=== PATIENT | female | born 1975 | race Caucasian/White ===

== ENCOUNTER 2019-12-02 00:28 | Outpatient (CLI) | payer BC, SELFPAY ==
[2019-12-02 17:34] LABS: SARS-CoV-2 RNA PCR Negative
== END 2019-12-02 00:29 | disposition home or self-care (01) ==
LOC: ANHCOVIDDT 00:29
PROVIDERS: PCP Family Medicine; Visit Provider Obstetrics & Gynecology
DX: Z01.818 Encounter for other preprocedural examination (principal); Z11.59 Encounter for screening for other viral diseases
CPT/HCPCS: 87635; C9803; U0003

== ENCOUNTER 2019-12-02 08:53 | Outpatient (CLI) | payer BC, SELFPAY ==
--- NOTE | 2019-12-02 08:58 | ECG_ITS ---
Measurements Intervals [place] Rate: 74 P: 56 ND: 164 QRS: 2 QRSD: 105 T: 27 QT: 384 QTc: 427 Interpretive Statements SINUS RHYTHM INCOMPLETE RIGHT BUNDLE BRANCH BLOCK BORDERLINE R WAVE PROGRESSION, ANTERIOR LEADS BASELINE ARTIFACT- I, III, AVR, AVL BORDERLINE ECG Electronically Signed On 12-02-2019 9:16:10 CDT by Miguel A Lozano D.O.
== END 2019-12-02 08:54 | disposition home or self-care (01) ==
LOC: ANHSURGERY 08:58
PROVIDERS: PCP Family Medicine; Visit Provider Obstetrics & Gynecology
DX: Z01.818 Encounter for other preprocedural examination (principal); N83.8 Other noninflammatory disorders of ovary, fallopian tube and broad ligament; Z72.0 Tobacco use
CPT/HCPCS: 36415; 86850; 86900; 86901; 93005

== ENCOUNTER 2019-12-04 01:37 | Day surgery (SDC) | payer BC, SELFPAY ==
[2019-12-01 09:38] VITALS: BMI 42.5
--- NOTE | 2019-12-02 07:42 | P.HP_ITS ---
H&P: HPI History of Present Illness Chief complaint: Left Ovarian Mass, Pain Narrative: Jesusita Mariscal is a 44 year old female status post hysterectomy as admitted for laparoscopic left salpingo- oophorectomy. She had pain discomfort dyspareunia. Ultrasound shows an absent uterus with an unremarkable vaginal cuff the right ovary was not seen with a large left adnexal mass this complex cystic in nature. Risks and benefits of this procedure reviewed including but not exclusive of , aspiration pneumon ia, bleeding, transfusion, perforation injury to bowel, bladder, ureters, or other internal organs with need for open laparotomy. She voiced good understanding. She received the [facility] [place]oscopy. She had all questions answered and asked to proceed Review of Systems Review of Systems: All systems reviewed & are unremarkable except as noted in HPI and below PMFSH Family History Family History Father Family history of mental disorder Family history of coronary artery disease Grandparent Cerebrovascular accident Family history of lung cancer Diabetes mellitus Sibling Family history of malignant melanoma Other Hypertension Social History Social History Smoking status: Smoker, status unknown Alcohol intake: current Meds Home Medications and Allergies Home Medications Medication Instructions Recorded Confirmed Type alprazolam 0.5 mg tablet 0.5 mg PO TID PRN #90 tablet 11/16/19 12/01/19 Rx cetirizine [Zyrtec] 10 mg PO DAILY 12/01/19 12/01/19 History magnesium oxide,aspartate,citr 400 mg PO DAILY 12/01/19 12/01/19 History [Triple Magnesium Complex] Allergies Allergy/AdvReac Type Severity Reaction Status Date / Time Cephalosporins Allergy Unknown N/V Verified 12/01/19 09:39 metoprolol Allergy Unknown SOB, Verified 12/01/19 09:39 dizziness CEFUROXIME AXETIL AdvReac Intermediate N/V Uncoded 12/01/19 09:39 Exam Const: General: no acute distress Neck: Neck: supple and no JVD Thyroid: thyroid normal Resp: Effort & Inspection: normal respiratory effort Auscultation: clear to auscultation bilaterally Cardio: Rate: regular rate Rhythm: regular rhythm GI: Inspection: non-distended GI Palp: Yes Soft to palpation, No Tenderness to palpation present (GI) and No Guarding due to palpation present (GI) Auscultation: normal bowel sounds : General: Yes bladder normal to inspection External Female Exam: normal external appearance and normal appearance of the urethra Speculum Exam - Vagina: normal appearance of the vagina Speculum Exam - Cervix: Cervix absent Bimanual exam- vagina & uterus: uterus absent Bimanual Exam- Adnexa, other: Adnexal mass present on the left Skin: General skin exam: no rashes or lesions noted Extrem: General: normal to inspection and no edema Psych: Mental Status: mental status grossly normal Affect: normal affect Assessment and Plan Additional Plan impression: Complex left ovarian cyst Plan: Laparoscopic left salpingo-oophorectomy
[2019-12-04] VITALS (8 sets, daily range): BP systolic 148–179; BP diastolic 77–99; PULSE 74–105; RESP 14–18; TEMP 36.7; O2SAT 97–100
--- NOTE | 2019-12-04 06:45 | WPDHPUPDATE1 ---
History and Physical Update Update Date/Time: 12/04/19 06:45 History and Physical has been reviewed, including an updated exam of the patient. There are NO changes in the patient's condition. Risks, benefits, and alternatives have been discussed and questions answered. Patient agrees to proceed with procedure.
--- NOTE | 2019-12-04 07:55 | P.PNAN_ITS ---
Anes - Initial Pre Proc Eval Procedure: Operation Date: 12/04/19 13:30 Proposed Procedures p Laparoscopic Left Salpingo-Oopherectomy - Delroy Argueta MD Date/Time: 12/04/19 07:55 Surgeon: Delroy Argueta MD Pre Op Diagnosis: Left Ovarian Mass, Pain Patient Data Age: 44 Gender: F Height: 1.63 m Weight: 112.49 kg Allergies Allergy/AdvReac Type Severity Reaction Status Date / Time Cephalosporins Allergy Unknown N/V Verified 12/01/19 09:39 metoprolol Allergy Unknown SOB, Verified 12/01/19 09:39 dizziness CEFUROXIME AXETIL AdvReac Intermediate N/V Uncoded 12/01/19 09:39 Home Medications Medication Instructions Recorded Confirmed Type alprazolam 0.5 mg tablet 0.5 mg PO TID PRN #90 tablet 11/16/19 12/04/19 Rx cetirizine [Zyrtec] 10 mg PO DAILY 12/01/19 12/04/19 History magnesium oxide,aspartate,citr 400 mg PO DAILY 12/01/19 12/04/19 History [Triple Magnesium Complex] hydrocodone-acetaminophen [[place]] 1 tablet PO Q4H PRN #30 tablet 12/04/19 Rx Patient hx anesthesia problems: none Family hx anesthesia problems: none PMFSH Past Medical History Medical History (Updated 12/04/19 @ 07:56 by Colten Porras MD) Anxiety disorder, unspecified Essential (primary) hypertension Hyperlipidemia Morbid obesity with BMI of 40.0-44.9, adult Family History Family History Father Family history of mental disorder Family history of coronary artery disease Grandparent Cerebrovascular accident Family history of lung cancer Diabetes mellitus Sibling Family history of malignant melanoma Other Hypertension Social History Social History Smoking status: Smoker, status unknown Alcohol intake: current Anes - Eval Final PreProcedure Day of Procedure 12/04/19 07:55 Patient weight: morbidly obese Heart: regular rate and rhythm Lungs: clear to auscultation and normal air movement Airway: Mallampati scale class II Neurological: alert and oriented Last oral intake: >/= 8 hours ASA classification: III Emergent: no Anesthetic plan: proceed Anesthesia type and monitoring: general ETT Informed Consent: The patient's anesthetic plan and its attendant risks and benefits were discussed with the patient/family/POA. Questions were solicited and answers provided to the satisfaction of the patient/family/POA.
[2019-12-04] MEDS: LACTATED RINGERS 1,000 ML 30 ML IV CONT ×2 (12:23→17:26)
--- NOTE | 2019-12-04 13:14 | SUR.PREOP ---
1314- UPDATED PT AND (YOLY) ON DELAY IN DR. TROY TAYLOR ROOM. STATED SURGERY TIME MAY BE 4 PM.
--- NOTE | 2019-12-04 15:11 | SUR.PREOP ---
1511- UPDATED PT ON DELAY, EXPLAINED SHE WILL GO BACK B/W 1600- 1630. RN WILL CALL HIM WHEN PT GOES TO OR.
--- NOTE | 2019-12-04 17:15 | P.OP_ITS ---
Procedure Note - Detailed Date of procedure: 12/04/19 Pre-op diagnosis: Left Ovarian Mass, Pain Surgeon: Delroy Argueta MD Postop diagnosis left ovarian mass /pain /pelvic adhesions Procedure: Laparoscopic left oophorectomy /lysis of adhesions Anesthesia: General endotracheal EBL: 25cc Findings: Absent uterus adhesions from the omentum to the anterior abdominal wall. A large ovarian cyst that was simple in nature surrounded by pelvic adhesions. Complications: None Description of procedure. The patient was prepped and draped in normal sterile fashion and placed in the dorsal lithotomy position. Under excellent general endotracheal anesthesia weighted speculum was placed in posterior fornix of va sherri. The bladder emptied of clear urine. A sponge stick was placed in the vagina. The weighted speculum was removed. The gloves were changed. A supraumbilical incision was made the Veress needle passed in the abdomen the abdomen filled with CO2 gas to 15 of mercury. The 5mm trocar was advanced under direct visualization using the optic scope in no injury seen. The patient placed in Trendelenburg and a left lateral quadrant incision made the 10mm trocar advanced in the abdomen under direct visualization assuring no injury. The multiple adhesions were then brought down by using sharp dissection with Endo Aashish and occasional cautery. This helped clear the visualization to the left ovary. Enlarged left ovarian cyst was seen. This was encased in omentum and scar tissue. Using sharp dissection carefully avoiding the overlying bowel this was dissected free into the intended infundibulopelvic structure could be skeletonized. That was then clamped burned and cut. Irrigation was undertaken until clear and the pedicles appeared clear. An Endo-Catch was placed in the left lower quadrant and the specimen placed in the endobag. This was removed through the left lower quadrant. Irrigation undertaken until clear. Blood loss was estimated 25cc. The trocar sites removed after gas removed from the abdomen. The incisions were closed with 4 Monocryl and glue. The instruments vagina were removed. The patient was awakened. She went to recovery in satisfactory condition. All sponge, needle, instrument counts were correct. There were no immediate complications
== END 2019-12-04 19:31 | disposition home or self-care (01) ==
PROVIDERS: PCP Family Medicine; Visit Provider Obstetrics & Gynecology
PROC: (CPT 49320; principal; 2019-12-04 13:30)
DX: N83.292 Other ovarian cyst, left side (principal); N73.6 Female pelvic peritoneal adhesions (postinfective)
CPT/HCPCS: 58661; 88305; A9270; J0330; J1100; J1170; J1885; J2250; J2405; J2704; J3010; J7120

== ENCOUNTER 2020-02-23 14:01 | Outpatient (CLI) | payer BC, SELFPAY ==
--- NOTE | ~2020-02-23 | MM_ITS ---
EXAMINATION: MM screening roddy BI w karuna HISTORY: Screening mammogram TECHNIQUE: Craniocaudal and mediolateral oblique 3-D tomosynthesis images were obtained and synthetic 2-D images were generated. CAD analysis was submitted and interpreted. COMPARISON: 12/20/2015 complete left breast ultrasound 12/13/2015, 10/04/2014 bilateral digital screening mammogram examinations BREAST PARENCHYMAL COMPOSITION: There are scattered areas of fibroglandular density... FINDINGS: Occasional small low-density circumscribed opacities are again noted, as well as bilateral benign calcifications. There is no evidence of suspicious mass, calcification, or architectural disto rtion to suggest malignancy in either breast. There has been no suspicious interval change. IMPRESSION: 1. No mammographic evidence of malignancy. 2. Recommend routine screening mammography in one year. BI-RADS Category 2: Benign finding(s). Reviewed, dictated and finalized at location A.
== END 2020-02-23 14:02 | disposition home or self-care (01) ==
PROVIDERS: PCP Family Medicine; Visit Provider Obstetrics & Gynecology
DX: Z12.31 Encounter for screening mammogram for malignant neoplasm of breast (principal)
CPT/HCPCS: 77063; 77067

== ENCOUNTER → 2021-03-23 13:21 | Outpatient (CLI) | payer BC, SELFPAY ==
--- NOTE | ~2021-03-23 | XR_ITS ---
XR shoulder RT min 2V DATE: 03/23/2021 13:42 INDICATION: Right shoulder pain TECHNIQUE: 4 views COMPARISON: None FINDINGS: There is degenerative spurring of the right acromioclavicular joint. No fracture or dislocation, periosteal reaction or bone destruction or abnormal soft tissue calcifica tion of the right shoulder is detected. IMPRESSION: Degenerative spurring at the right acromioclavicular joint Reviewed, dictated and finalized at location B.
== END ==
PROVIDERS: PCP Family Medicine; Visit Provider Nurse Practitioner Family
DX: M25.519 Pain in unspecified shoulder (principal); R20.0 Anesthesia of skin; R20.2 Paresthesia of skin; M77.8 Other enthesopathies, not elsewhere classified
CPT/HCPCS: 73030

== ENCOUNTER 2021-04-06 16:59 | Outpatient (CLI) | payer BC, SELFPAY ==
--- NOTE | ~2021-04-06 | MR_ITS ---
EXAMINATION: MR shoulder RT wo con DATE: 04/06/2021 17:48 INDICATION: Stiffness of unspecified joint, not elsewhere classified. Right shoulder injury and pain. TECHNIQUE: Magnetic resonance imaging (MRI) of the right shoulder was performed without intravenous c ontrast. Sequences included axial PD-weighted FS FSE, coronal oblique PD-weighted FS FSE and T2-weigh lizy FS FSE, and sagittal oblique T2-weighted FS FSE and T1-weighted FSE. COMPARISON: Right shoulder radiographs 03/23/2021 FINDINGS: Coracoacromial arch: The acromion undersurface is curved in morphology (type II). There is inferolateral tilt of the acrom ion. There is severe acromioclavicular joint osteoarthritis. There is mild subacromial/subdeltoid bur sitis. Rotator cuff: There is mild supraspinatus and infraspinatus tendinopathy. Teres minor tendon is normal. There is mo derate subscapularis tendinopathy. No tear. There is no asymmetric fatty atrophy of the rotator cuff muscle bellies. Biceps tendon and glenoid labrum: Biceps tendon is in bicipital groove. There is mild intra-articular biceps tendinopathy. The glenoid labrum is normal. Fluid: There is a small glenohumeral joint effusion. Bones/cartilage: Humeral head cartilage is normal. Glenoid cartilage is normal. IMPRESSION: 1. Moderate rotator cuff tendinopathy. No tear. 2. Mild biceps tendinopathy. 3. Severe acromioclavicular joint osteoarthritis. 4. Mild subacromial/subdeltoid bursitis. 5. Small glenohumeral joint effusion. Reviewed, dictated and finalized at location A.
== END 2021-04-06 17:00 | disposition home or self-care (01) ==
LOC: ANHIMG 17:05
PROVIDERS: PCP Family Medicine; Visit Provider Nurse Practitioner Family
DX: M25.60 Stiffness of unspecified joint, not elsewhere classified (principal); M25.519 Pain in unspecified shoulder; R20.0 Anesthesia of skin; R20.2 Paresthesia of skin; R29.898 Other symptoms and signs involving the musculoskeletal system; M19.011 Primary osteoarthritis, right shoulder; M25.411 Effusion, right shoulder; S46.211A Strain of muscle, fascia and tendon of other parts of biceps, right arm, initial encounter
CPT/HCPCS: 73221

== ENCOUNTER 2021-07-31 10:19 | Emergency (ER) | payer BC, SELFPAY ==
--- NOTE | 2021-07-31 10:29 | ED.URI ---
HPI - URI/Sore Throat General Chief Complaint: Upper Respiratory Infection Stated Complaint: Congestion Time Seen by Provider: 07/31/21 10:29 Source: patient, RN notes reviewed and old records reviewed Mode of arrival: ambulatory Limitations: no limitations History of Present Illness HPI Narrative: 45-year-old female presents to the [facility] with complaints of bilateral ear pain, pressure, sinus pain and pressure for the last 5 days. Reports a history of bacterial sinus infections. States that she normally uses a Z-Francisco and that takes care of everything. States that she cannot take Augmentin due to GI upset. States that she cannot use Flonase. Has tried using Mucinex and Sudafed with no relief. States she tried getting in with her doctor for a shot of a steroid antibiotic mix and a Z-Francisco. Related Data Home Medications Medication Instructions Recorded Confirmed cetirizine [Zyrtec] 10 mg PO DAILY 12/01/19 07/31/21 Allergies Allergy/AdvReac Type Severity Reaction Status Date / Time fluticasone [From Flonase] Allergy Intermediate Itching Verified 07/31/21 10:42 Cephalosporins Allergy Unknown N/V Verified 07/31/21 10:42 metoprolol Allergy Unknown SOB, Verified 07/31/21 10:42 dizziness amoxicillin [From Augmentin] AdvReac Intermediate Diarrhea Verified 07/31/21 10:42 clavulanic acid AdvReac Intermediate Diarrhea Verified 07/31/21 10:42 [From Augmentin] CEFUROXIME AXETIL AdvReac Intermediate N/V Uncoded 03/23/21 08:12 Review of Systems Review of Systems: All systems reviewed & are unremarkable except as noted in HPI and below Constitutional: Constitutional: Reports no additional constitutional complaints, Denies chills, Denies fever(s) and Denies headache(s) Eyes: Eyes: Reports no additional eye complaints ENT: Reports as per HPI, Denies vertigo, Denies dizziness, Denies headache(s), Reports nasal congestion and Denies sore throat Comments: Bilateral ear pain Cardiovascular: Cardiovascular: Reports no additional cardiovascular complaints, Denies chest pain, Denies syncope, Denies rapid heart rate and Denies dyspnea Respiratory: Respiratory: Reports no additional respiratory complaints, Denies cough, Denies dyspnea and Denies wheezing Gastrointestinal: Gastrointestinal: Reports no additional gastrointestinal complaints, Denies abdominal pain, Denies diarrhea, Denies nausea and Denies vomiting Musculoskeletal: Musculoskeletal: Reports no additional musculoskeletal complaints and Denies numbness Integumentary/Breasts: Skin/Breast: Reports system reviewed and no additional complaints, except as docu Neurologic: Reports system reviewed and no additional complaints, except as documented, Denies vertigo, Denies dizziness, Denies syncope, Denies headache(s), Denies focal weakness and Denies numbness Psychiatric: Psychiatric: Reports no additional psychiatric complaints Allergic/Immunologic: Allergic/Immunologic: Reports no additional allergic/immunologic complaints and Denies wheezing PMFSH Past Medical History Medical History Anxiety disorder, unspecified Boil, groin Essential (primary) hypertension Eustachian tube disorder Hyperlipidemia Morbid obesity with BMI of 40.0-44.9, adult Surgical History Surgical History History of oophorectomy, unilateral Hx of hysterectomy Family History Family History Father Family history of mental disorder Family history of coronary artery disease Grandparent Cerebrovascular accident Family history of lung cancer Diabetes mellitus Sibling Family history of malignant melanoma Other Hypertension Social History Social History Years smoked: 35 Smoking status: Former smoker Tobacco type: cigarettes Alcohol intake: current Substance use: never
[2021-07-31 10:35] VITALS: BP 157/82; PULSE 97; RESP 18; TEMP 37.5; O2SAT 100
== END 2021-07-31 10:45 | disposition home or self-care (01) ==
PROVIDERS: Emergency Provider Nurse Practitioner; PCP Family Medicine
DX: H65.01 Acute serous otitis media, right ear (principal); J32.9 Chronic sinusitis, unspecified; Z87.891 Personal history of nicotine dependence; I10 Essential (primary) hypertension; E78.5 Hyperlipidemia, unspecified; E66.01 Morbid (severe) obesity due to excess calories; Z68.39 Body mass index [BMI] 39.0-39.9, adult
CPT/HCPCS: 99213; G0463

== ENCOUNTER → 2021-09-05 11:22 | Outpatient (CLI) | payer BC, SELFPAY ==
--- NOTE | ~2021-09-05 | XR_ITS ---
EXAMINATION: XR chest 2V EXAM DATE: 09/05/2021 11:33 INDICATION: R05.3 - Chronic cough. Shortness of breath, ear pain, head pressure. TECHNIQUE: Frontal and lateral projections of the chest obtained and reviewed. There is no prior tiara dy for comparison. FINDINGS: The lungs are clear. There are no pleural effusions. The cardiomediastinal silhouette is within normal limits. There is no pneumothorax suspected. The bones and soft tissues are unremarkab le. IMPRESSION: No acute cardiopulmonary findings. Reviewed, dictated and finalized at location B.
== END ==
PROVIDERS: PCP Family Medicine; Visit Provider Nurse Practitioner Family
DX: R05.3 Chronic cough (principal); R07.89 Other chest pain
CPT/HCPCS: 71046

== ENCOUNTER 2022-06-21 17:25 | Emergency (ER) | payer BC, SELFPAY ==
[2022-06-21 17:45] VITALS: BP 168/95; PULSE 86; RESP 16; TEMP 37.2; O2SAT 100
--- NOTE | 2022-06-21 18:02 | ED.URI ---
HPI - URI/Sore Throat General Chief Complaint: Upper Respiratory Infection Stated Complaint: Sore Throat Time Seen by Provider: 06/21/22 18:03 Source: patient, RN notes reviewed and old records reviewed Mode of arrival: ambulatory Limitations: no limitations History of Present Illness HPI Narrative: 46-year-old female presents to the [facility] with complaints of a sore throat for 4 days. Patient denies any fevers. States that she has been exposed to strep over the last several weeks. Talking in full sentences, denies any other symptoms. Related Data Home Medications Medication Instructions Recorded Confirmed cetirizine 10 mg tablet (Zyrtec) 10 mg PO DAILY 12/01/19 01/23/22 Allergies Allergy/AdvReac Type Severity Reaction Status Date / Time Cephalosporins Allergy Unknown N/V Verified 01/23/22 10:29 metoprolol Allergy Unknown SOB, Verified 01/23/22 10:29 dizziness amoxicillin [From Augmentin] AdvReac Intermediate Diarrhea Verified 01/23/22 10:29 clavulanic acid AdvReac Intermediate Diarrhea Verified 01/23/22 10:29 [From Augmentin] Review of Systems Review of Systems: All systems reviewed & are unremarkable except as noted in HPI and below Constitutional: Constitutional: Reports no additional constitutional complaints Eyes: Eyes: Reports no additional eye complaints ENT: Reports as per HPI and Reports sore throat Cardiovascular: Cardiovascular: Reports no additional cardiovascular complaints, Denies chest pain and Denies dyspnea Respiratory: Respiratory: Reports no additional respiratory complaints, Denies chest congestion, Denies cough and Denies dyspnea Gastrointestinal: Gastrointestinal: Reports no additional gastrointestinal complaints, Denies abdominal pain, Denies nausea and Denies vomiting Musculoskeletal: Musculoskeletal: Reports no additional musculoskeletal complaints Integumentary/Breasts: Skin/Breast: Reports system reviewed and no additional complaints, except as docu Neurologic: Reports system reviewed and no additional complaints, except as documented Psychiatric: Psychiatric: Reports no additional psychiatric complaints Allergic/Immunologic: Allergic/Immunologic: Reports no additional allergic/immunologic complaints PMFSH Past Medical History Medical History Anxiety disorder, unspecified BMI 39.0-39.9,adult Boil, groin COVID-19 Essential (primary) hypertension Eustachian tube disorder Hyperlipidemia Morbid obesity with BMI of 40.0-44.9, adult Surgical History Surgical History History of oophorectomy, unilateral Hx of hysterectomy Family History Family History Father Family history of mental disorder Family history of coronary artery disease Acute myocardial infarction Grandparent Cerebrovascular accident Family history of lung cancer Diabetes mellitus Sibling No problems noted. 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
== END 2022-06-21 18:18 | disposition home or self-care (01) ==
PROVIDERS: Emergency Provider Nurse Practitioner; PCP Family Medicine
DX: J06.9 Acute upper respiratory infection, unspecified (principal); I10 Essential (primary) hypertension; E78.5 Hyperlipidemia, unspecified; F17.210 Nicotine dependence, cigarettes, uncomplicated
CPT/HCPCS: 87081; 87880; 99213; G0463

== ENCOUNTER 2022-08-22 00:52 | Day surgery (SDC) | payer BC, SELFPAY ==
[2022-08-13 14:07] VITALS: BMI 37.0
[2022-08-22 06:54] VITALS: BP 139/97; PULSE 95; RESP 18; TEMP 36.5; O2SAT 97
[2022-08-22] MEDS: LACTATED RINGERS 1,000 ML 150 ML IV CONT (07:10)
--- NOTE | 2022-08-22 07:33 | WPDANESEPPF ---
Anes - Initial Pre Proc Eval Procedure: Operation Date: 08/22/22 08:00 Proposed Procedures p Screening Colonoscopy - Carlos Staley MD Date/Time: 08/22/22 07:33 Surgeon: Carlos Staley MD Pre Op Diagnosis: neoplasm screening Patient Data Age: 46 Gender: F Height: 1.63 m Weight: 97.6 kg Last Vital Signs Temp 97.7 F 08/22/22 06:54 Pulse 95 08/22/22 06:54 Resp 18 08/22/22 06:54 BP 139/97 H 08/22/22 06:54 Pulse Ox 97 08/22/22 06:54 O2 Del Method Room Air 08/22/22 06:54 Allergies Allergy/AdvReac Type Severity Reaction Status Date / Time Cephalosporins Allergy Unknown N/V Verified 08/22/22 06:51 metoprolol Allergy Unknown SOB, Verified 08/22/22 06:51 dizziness amoxicillin [From Augmentin] AdvReac Intermediate Diarrhea Verified 08/22/22 06:51 clavulanic acid AdvReac Intermediate Diarrhea Verified 08/22/22 06:51 [From Augmentin] Home Medications Medication Instructions Recorded Confirmed Type cetirizine 10 mg tablet (Zyrtec) 10 mg PO DAILY 12/01/19 08/13/22 History albuterol sulfate 90 mcg/actuation 2 inh inhalation Q4H PRN shortness 09/05/21 08/13/22 Rx aerosol inhaler of breath or wheezing #8.5 grams fluticasone propionate 50 1 - 2 spray intranasal BID #16 mL 03/30/22 08/13/22 Rx mcg/actuation nasal spray,suspension (Flonase Allergy Relief) hydrochlorothiazide 25 mg tablet 25 mg PO .QD 07/04/22 08/13/22 History alprazolam 0.5 mg tablet (Xanax) 0.5 mg PO TID PRN anxiety #90 tabs 08/10/22 08/13/22 Rx Patient hx anesthesia problems: none Family hx anesthesia problems: none Results Review: All pre-operative results and documents have been reviewed as part of the pre-operative evaluation. [facility] Past Medical History Medical History Anxiety disorder, unspecified BMI 36.0-36.9,adult BMI 39.0-39.9,adult Boil, groin COVID-19 Essential (primary) hypertension Eustachian tube disorder Hyperlipidemia Morbid obesity with BMI of 40.0-44.9, adult Surgical History Surgical History History of oophorectomy, unilateral Hx of hysterectomy Family History Family History Father Family history of mental disorder Family history of coronary artery disease Acute myocardial infarction Grandparent Cerebrovascular accident Family history of lung cancer Diabetes mellitus Sibling No problems noted. Mother Hypertension Sibling Family history of malignant melanoma Social History Social History Smoking packs per day: 0.75 Smoking cigarettes per day: 15.0 Years smoked: 37 Smoking pack-years: 27.75 Smoking status: Current every day smoker Tobacco type: cigarettes Second hand tobacco smoke exposure: Yes Alcohol intake: current Drinks per week: 0 Alcohol use details: socially Substance use: never Substance use type: does not use Lack of Transportation: No Lack of Food: Never True Current Housing: I Have Housing Concerned About Future Housing: No Difficulty Paying Gas/Electric Bills: No Difficulty Paying for Meds: No Currently Unemployed: No Education: Trade/Vocational Certificate Difficulty w/ Childcare or Family Care: No Living arrangements: with family Additional living arrangements comments: Occupation/Education: unemployed 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
--- NOTE | 2022-08-22 08:08 | PM.HPGS ---
History of Present Illness History of Present Illness Consent: Risks, benefits, and alternatives have been discussed and questions answered. Patient agrees to proceed with procedure. Chief complaint: neoplasm screening Narrative: Jesusita Mariscal is a 46 year old female here for first screening colonoscopy, also noted blood in stool Review of Systems Constitutional: Constitutional: Denies headache(s) and Denies weakness Eyes: Eyes: Denies blurry vision ENT: Reports Normal hearing present, Denies headache(s) and Denies neck pain Cardiovascular: Cardiovascular: Denies chest pain and Denies dyspnea Respiratory: Respiratory: Denies dyspnea Gastrointestinal: Gastrointestinal: Reports no additional gastrointestinal complaints Genitourinary: Genitourinary: Denies dysuria Musculoskeletal: Musculoskeletal: Denies neck pain Integumentary/Breasts: Skin/Breast: Denies dry skin Neurologic: Reports Normal hearing present, Denies headache(s) and Denies weakness Psychiatric: Psychiatric: Denies anxiety Endocrine: Endocrine: Denies change in body appearance Hematologic/Lymphatic: Hematologic/Lymphatic: Denies easy bleeding Allergic/Immunologic: Allergic/Immunologic: Denies urticaria PMFSH Past Medical History Medical History Anxiety disorder, unspecified BMI 36.0-36.9,adult BMI 39.0-39.9,adult Boil, groin COVID-19 Essential (primary) hypertension Eustachian tube disorder Hyperlipidemia Morbid obesity with BMI of 40.0-44.9, adult Surgical History Surgical History History of oophorectomy, unilateral Hx of hysterectomy Family History Family History Father Family history of mental disorder Family history of coronary artery disease Acute myocardial infarction Grandparent Cerebrovascular accident Family history of lung cancer Diabetes mellitus Sibling No problems noted. Mother Hypertension Sibling Family history of malignant melanoma Social History Social History Smoking packs per day: 0.75 Smoking cigarettes per day: 15.0 Years smoked: 37 Smoking pack-years: 27.75 Smoking status: Current every day smoker Tobacco type: cigarettes Second hand tobacco smoke exposure: Yes Alcohol intake: current Drinks per week: 0 Alcohol use details: socially Substance use: never Substance use type: does not use Lack of Transportation: No Lack of Food: Never True Current Housing: I Have Housing Concerned About Future Housing: No Difficulty Paying Gas/Electric Bills: No Difficulty Paying for Meds: No Currently Unemployed: No Education: Trade/Vocational Certificate Difficulty w/ Childcare or Family Care: No Living arrangements: with family Additional living arrangements comments: Occupation/Education: unemployed 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d by the Patient): Straight or Heterosexual Spiritual care concerns: No Agree to blood products: Yes Meds Home Medications and Allergies Home Medications Medication Instructions Recorded Confirmed Type cetirizine 10 mg tablet (Zyrtec) 10 mg PO DAILY 12/01/19 08/13/22 History albuterol sulfate 90 mcg/actuation 2 inh inhalation Q4H PRN shortness 09/05/21 08/13/22 Rx aerosol inhaler of breath or wheezing #8.5 grams fluticasone propionate 50 1 - 2 spray intranasal BID #16 mL 03/30/22 08/13/22 Rx mcg/actuation nasal spray,suspension (Flonase Allergy Relief) hydrochlorothiazide 25 mg tablet 25 mg PO .QD 07/04/22 08/13/22 History alprazolam 0.5 mg tablet (Xanax) 0.5 mg PO TID PRN anxiety #90 tabs 08/10/22 08/13/22 Rx Allergies Allergy/AdvReac Type Sev
[2022-08-22 08:33] VITALS: BP 148/78; PULSE 90; RESP 19; O2SAT 98
[2022-08-22 08:43] VITALS: BP 138/76; PULSE 82; RESP 21; O2SAT 98
[2022-08-22 08:53] VITALS: BP 153/78; PULSE 80; RESP 18; O2SAT 98
== END 2022-08-22 09:02 | disposition home or self-care (01) ==
PROVIDERS: PCP Family Medicine; Visit Provider Internal Medicine Gastroenterology
PROC: 0DJD8ZZ Inspection of Lower Intestinal Tract, Via Natural or Artificial Opening Endoscopic (ICD-10-PCS; CPT 45378; principal; 2022-08-22 08:00)
DX: Z12.11 Encounter for screening for malignant neoplasm of colon (principal); K64.8 Other hemorrhoids; I10 Essential (primary) hypertension; E78.5 Hyperlipidemia, unspecified; E66.01 Morbid (severe) obesity due to excess calories; Z68.36 Body mass index [BMI] 36.0-36.9, adult; F17.210 Nicotine dependence, cigarettes, uncomplicated
CPT/HCPCS: 45378; J2704; J7120

== ENCOUNTER 2023-01-06 12:19 | Emergency (ER) | payer BC, SELFPAY ==
[2023-01-06 12:32] VITALS: BP 135/78; PULSE 81; RESP 16; TEMP 36.7; O2SAT 100
[2023-01-06 12:36] VITALS: BP 135/78; PULSE 81; RESP 16; TEMP 36.7; O2SAT 100
--- NOTE | 2023-01-06 13:00 | ED.GENADULT ---
HPI - General Adult General Chief complaint: Upper Respiratory Infection Stated complaint: sinus issues Source: patient Mode of arrival: ambulatory Limitations: no limitations History of Present Illness HPI narrative: PATIENT PRESENTS FOR EVALUATION OF SINUS SYMPTOMS FOR THE LAST 3 DAYS. SYMPTOMS INCLUDE SINUS CONGESTION MUCOPURULENT DISCHARGE FROM THE NARES. SHE NOW HAS A COUGH WHICH IS PRODUCTIVE OF YELLOW SPUTUM. SHE DENIES ANY FEVER, CHILLS, NAUSEA, VOMITING, SHORTNESS OF BREATH, OTALGIA, SORE THROAT. NO RECENT SICK CONTACTS TO HER KNOWLEDGE. SHE SMOKES HALF A PACK PER DAY. SHE HAS TRIED AN [id number] NASAL SPRAY AND MUCINEX WITHOUT MUCH IMPROVEMENT. SHE SMOKES ABOUT 1/2 PPD. Related Data Home Medications Medication Instructions Recorded Confirmed hydrochlorothiazide 25 mg tablet 25 mg PO .QD 07/04/22 01/06/23 amlodipine 5 mg tablet 5 mg PO DAILY 01/06/23 01/06/23 spironolactone 25 mg tablet 25 mg PO DAILY 01/06/23 01/06/23 Allergies Allergy/AdvReac Type Severity Reaction Status Date / Time Cephalosporins Allergy Unknown N/V Verified 01/06/23 12:27 metoprolol Allergy Unknown SOB, Verified 01/06/23 12:27 dizziness amoxicillin [From Augmentin] AdvReac Intermediate Diarrhea Verified 01/06/23 12:27 clavulanic acid AdvReac Intermediate Diarrhea Verified 01/06/23 12:27 [From Augmentin] Review of Systems Review of Systems: CONSTITUTIONAL: DENIES FEVER, CHILLS, OR SWEATS. EYES: DENIES VISUAL CHANGES, REDNESS, OR DISCHARGE. ENT: REPORTS SINUS CONGESTION AND MUCOPURULENT DISCHARGE FROM HER NARES CARDIOVASCULAR: DENIES CHEST PAIN, PALPITATIONS, OR EDEMA. RESPIRATORY: REPORTS PRODUCTIVE COUGH. DENIES SOB GASTROINTESTINAL: DENIES ABDOMINAL PAIN, NAUSEA, VOMITING, OR DIARRHEA. GENITOURINARY: DENIES DYSURIA OR HEMATURIA. SKIN: DENIES RASH OR ITCHING. MUSCULOSKELETAL: DENIES BACK PAIN, JOINT PAIN, OR MYALGIA. NEUROLOGIC: DENIES HEADACHE, NUMBNESS, DIZZINESS, OR WEAKNESS. PSYCHIATRIC: DENIES ANXIETY OR DEPRESSION. [facility] Past Medical History Medical History Anxiety disorder, unspecified BMI 36.0-36.9,adult BMI 39.0-39.9,adult Boil, groin COVID-19 Essential (primary) hypertension Eustachian tube disorder Hyperlipidemia Morbid obesity with BMI of 40.0-44.9, adult Surgical History Surgical History History of oophorectomy, unilateral Hx of hysterectomy Family History Family History (Reviewed 01/06/23 @ 13:06 by Ian De Oliveira [facility], ) Father Family history of mental disorder Family history of coronary artery disease Acute myocardial infarction Grandparent Cerebrovascular accident Family history of lung cancer Diabetes mellitus Sibling No problems noted. Mother Hypertension Sibling Family history of malignant melanoma Social History Social History (Updated 01/06/23 @ 13:08 by Ian De Oliveira [employer], ) Smoking packs per day: 0.5 Smoking cigarettes per day: 10.0 Years smoked: 37 Smoking pack-years: 18.50 Smoking status: Current every day smoker Tobacco type: cigarettes Second hand tobacco smoke exposure: Yes Alcohol intake: current Drinks per week: 0 Alcohol use details: socially Substance use: never Substance use type: does not use Lack of Transportation: No Lack of Food: Never True Current Housing: I Have Housing Concerned About Future Housing: No Difficulty Paying Gas/Electric Bills: No Difficulty Paying for Meds: No Currently Unemployed: No Education: Trade/Vocational Certificate Difficulty w/ Childcare or Family Care: No Living arrangements: with family Additional living arrangements comments: Occupation/Education: unemployed 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
== END 2023-01-06 13:07 | disposition home or self-care (01) ==
PROVIDERS: Emergency Provider Nurse Practitioner; PCP Family Medicine
DX: J01.90 Acute sinusitis, unspecified (principal); F17.210 Nicotine dependence, cigarettes, uncomplicated; I10 Essential (primary) hypertension; E78.5 Hyperlipidemia, unspecified; F41.9 Anxiety disorder, unspecified; E66.01 Morbid (severe) obesity due to excess calories; Z68.33 Body mass index [BMI] 33.0-33.9, adult; Z86.16 Personal history of COVID-19
CPT/HCPCS: 99213; G0463

== ENCOUNTER 2023-01-23 09:06 | Emergency (ER) | payer BC, SELFPAY ==
--- NOTE | ~2023-01-23 | XR_ITS ---
EXAMINATION: XR chest 2V DATE: 01/23/2023 09:58 INDICATION: Cough and shortness of breath TECHNIQUE: PA and lateral views of the chest are obtained. COMPARISON: 09/05/2021 FINDINGS: The lungs are free of acute opacities. No pleural effusion or pneumothorax. The cardiomedia stinal silhouette is normal. There is moderate thoracic spondylosis. IMPRESSION: 1. No acute cardiopulmonary abnormality. Reviewed, dictated and finalized at location B.
[2023-01-23 09:16] VITALS: BP 135/67; PULSE 75; RESP 16; TEMP 36.6; O2SAT 98
[2023-01-23 09:19] VITALS: BP 135/67; PULSE 75; RESP 16; TEMP 36.6; O2SAT 98
--- NOTE | 2023-01-23 09:27 | ED.BACK ---
HPI - Back Pain/Injury General Chief Complaint: Upper Respiratory Infection Stated Complaint: Back Pain Time Seen by Provider: 01/23/23 09:36 Source: patient Mode of arrival: ambulatory Limitations: no limitations History of Present Illness HPI Narrative: 47-year-old female presented for complaint of right upper back pain around shoulder blade area over the past 2 days. Endorses pain is 8/10 at rest, worse with certain movements of the arms or twisting at the back. States the pain can cause her to ? take her breath away. Endorses occasional productive cough of yellow/brown sputum. Also endorses sinus congestion and drainage, was treated for sinus infection 01/06/23 with doxycycline and reports improvement. Patient watches her grandkids during the day, stating she had trouble lifting them yesterday. She has taken ibuprofen and Tylenol without significant relief. Denies numbness, tingling, weakness of the upper extremities, pain radiating to the arms. Smokes 1ppd. Related Data Home Medications Medication Instructions Recorded Confirmed hydrochlorothiazide 25 mg tablet 25 mg PO .QD 07/04/22 01/23/23 amlodipine 5 mg tablet 5 mg PO DAILY 01/06/23 01/23/23 spironolactone 25 mg tablet 25 mg PO DAILY 01/06/23 01/23/23 Allergies Allergy/AdvReac Type Severity Reaction Status Date / Time Cephalosporins Allergy Intermediate N/V Verified 01/23/23 09:17 metoprolol Allergy Intermediate SOB, Verified 01/23/23 09:17 dizziness amoxicillin [From Augmentin] AdvReac Intermediate Diarrhea Verified 01/23/23 09:17 clavulanic acid AdvReac Intermediate Diarrhea Verified 01/23/23 09:17 [From Augmentin] Review of Systems Review of Systems: CONSTITUTIONAL: Denies body aches, fever, chills EYES: Denies visual changes CARDIOVASCULAR: Denies chest pain, palpitations, or edema. RESPIRATORY: Denies cough or dyspnea. GASTROINTESTINAL: Denies abdominal pain, nausea, vomiting, or diarrhea. SKIN: Denies rash, itching, or wounds. MUSCULOSKELETAL: reports back pain NEUROLOGIC: Denies headache, numbness, tingling, or weakness. All systems reviewed & are unremarkable except as noted in HPI and below PMFSH Past Medical History Medical History Anxiety disorder, unspecified BMI 36.0-36.9,adult BMI 39.0-39.9,adult Boil, groin COVID-19 Essential (primary) hypertension Eustachian tube disorder Hyperlipidemia Morbid obesity with BMI of 40.0-44.9, adult Surgical History Surgical History History of oophorectomy, unilateral Hx of hysterectomy Family History Family History Father Family history of mental disorder Family history of coronary artery disease Acute myocardial infarction Grandparent Cerebrovascular accident Family history of lung cancer Diabetes mellitus Sibling No problems noted. Mother Hypertension Sibling Family history of malignant melanoma Social History Social History Smoking packs per day: 0.5 Smoking cigarettes per day: 10.0 Years smoked: 37 Smoking pack-years: 18.50 Smoking status: Current every day smoker Tobacco type: cigarettes Second hand tobacco smoke exposure: Yes Alcohol intake: current Drinks per week: 0 Alcohol use details: socially Substance use: never Substance use type: does not use Lack of Transportation: No Lack of Food: Never True Current Housing: I Have Housing Concerned About Future Housing: No Difficulty Paying Gas/Electric Bills: No Difficulty Paying for Meds: No Currently Unemployed: No Education: Trade/Vocational Certificate Difficulty w/ Childcare or Family Care: No Living arrangements: with family Additional living arrangements comments: Occupation/Education: unemployed Additional occupati
== END 2023-01-23 10:26 | disposition home or self-care (01) ==
PROVIDERS: Emergency Provider Nurse Practitioner Family; PCP Family Medicine
DX: M54.6 Pain in thoracic spine (principal); F17.210 Nicotine dependence, cigarettes, uncomplicated; I10 Essential (primary) hypertension; E78.5 Hyperlipidemia, unspecified; E66.01 Morbid (severe) obesity due to excess calories; Z68.33 Body mass index [BMI] 33.0-33.9, adult; Z86.16 Personal history of COVID-19
CPT/HCPCS: 71046; 99213; G0463

== ENCOUNTER 2023-03-11 08:17 | Emergency (ER) | payer BC, SELFPAY ==
[2023-03-11 08:29] VITALS: BP 162/88; PULSE 80; RESP 16; TEMP 36.6; O2SAT 98
--- NOTE | 2023-03-11 08:29 | ED.EAR ---
HPI - Ear Problem General Chief complaint: Ear Stated complaint: left ear swollen,painful Time Seen by Provider: 03/11/23 08:29 Source: patient, RN notes reviewed and old records reviewed Mode of arrival: ambulatory Limitations: no limitations History of Present Illness HPI Narrative: 47-year-old female presents to the [facility] with complaints of left ear pain and feeling as if it was swollen since Saturday, 2 days. States her grand babies were sick last week and was taking Zicam and Tylenol. States that she takes Zyrtec and Flonase daily as well as her blood pressure. Takes anxiety medication as needed MD Complaint: ear pain Location: left ear Related Data Home Medications Medication Instructions Recorded Confirmed hydrochlorothiazide 25 mg tablet 25 mg PO .QD 07/04/22 03/11/23 cetirizine 10 mg tablet (Zyrtec) 10 mg PO DAILY 03/11/23 03/11/23 fluticasone propionate 50 50 mcg intranasal DIRECTED 03/11/23 03/11/23 mcg/actuation nasal spray,suspension Allergies Allergy/AdvReac Type Severity Reaction Status Date / Time Cephalosporins Allergy Intermediate N/V Verified 01/23/23 09:17 metoprolol Allergy Intermediate SOB, Verified 01/23/23 09:17 dizziness amoxicillin [From Augmentin] AdvReac Intermediate Diarrhea Verified 01/23/23 09:17 clavulanic acid AdvReac Intermediate Diarrhea Verified 01/23/23 09:17 [From Augmentin] Review of Systems Review of Systems: All systems reviewed & are unremarkable except as noted in HPI and below Constitutional: Constitutional: Reports no additional constitutional complaints Eyes: Eyes: Reports no additional eye complaints ENT: Reports as per HPI and Reports otalgia (Left ear) Cardiovascular: Cardiovascular: Reports no additional cardiovascular complaints, Denies chest pain and Denies dyspnea Respiratory: Respiratory: Reports no additional respiratory complaints, Denies chest congestion, Denies cough and Denies dyspnea Gastrointestinal: Gastrointestinal: Reports no additional gastrointestinal complaints, Denies abdominal pain, Denies nausea and Denies vomiting Musculoskeletal: Musculoskeletal: Reports no additional musculoskeletal complaints Integumentary/Breasts: Skin/Breast: Reports system reviewed and no additional complaints, except as docu Neurologic: Reports system reviewed and no additional complaints, except as documented Psychiatric: Psychiatric: Reports no additional psychiatric complaints Allergic/Immunologic: Allergic/Immunologic: Reports no additional allergic/immunologic complaints PMFSH Past Medical History Medical History Anxiety disorder, unspecified BMI 36.0-36.9,adult BMI 39.0-39.9,adult Boil, groin COVID-19 Essential (primary) hypertension Eustachian tube disorder Hyperlipidemia Morbid obesity with BMI of 40.0-44.9, adult Surgical History Surgical History History of oophorectomy, unilateral Hx of hysterectomy Family History Family History Father Family history of mental disorder Family history of coronary artery disease Acute myocardial infarction Grandparent Cerebrovascular accident Family history of lung cancer Diabetes mellitus Sibling No problems noted. Mother Hypertension Sibling Family history of malignant melanoma Social History Social History Smoking packs per day: 0.5 Smoking cigarettes per day: 10.0 Years smoked: 37 Smoking pack-years: 18.50 Smoking status: Current every day smoker Tobacco type: cigarettes Second hand tobacco smoke exposure: Yes Alcohol intake: current Drinks per week: 0 Alcohol use details: socially Substance use: never Substance use type: does not use Lack of Transportation: No Lack of Food: Never True Current Housing: I
== END 2023-03-11 08:46 | disposition home or self-care (01) ==
PROVIDERS: Emergency Provider Nurse Practitioner; PCP Family Medicine
DX: H65.02 Acute serous otitis media, left ear (principal); H69.82 Other specified disorders of Eustachian tube, left ear; I10 Essential (primary) hypertension; E78.5 Hyperlipidemia, unspecified; F17.210 Nicotine dependence, cigarettes, uncomplicated; Z79.899 Other long term (current) drug therapy
CPT/HCPCS: 99213; G0463

== ENCOUNTER 2023-04-25 08:30 | Outpatient (CLI) | payer BC, SELFPAY ==
--- NOTE | ~2023-04-25 | MM_ITS ---
EXAMINATION: MM screening [facility] BI w karuna HISTORY: Screening mammogram TECHNIQUE: Craniocaudal and mediolateral oblique 3-D tomosynthesis images were obtained and synthetic 2-D images were generated. CAD analysis was submitted and interpreted. COMPARISON: 02/23/2020, 12/20/2015, 12/13/2015, 10/04/2014 BREAST PARENCHYMAL COMPOSITION: There are scattered areas of fibroglandular density. FINDINGS: No suspicious mass, calcification, or architectural distortion are identified in either sher ast to suggest malignancy. There has been no suspicious interval change. IMPRESSION: 1. No mammographic evidence of malignancy. 2. Recommend routine screening mammography in one year. BI-RADS Category 1: Negative Reviewed, dictated and finalized at location A. ING MACHINE OPERATOR
== END 2023-04-25 08:31 | disposition home or self-care (01) ==
PROVIDERS: PCP Family Medicine; Visit Provider Obstetrics & Gynecology
DX: Z12.31 Encounter for screening mammogram for malignant neoplasm of breast (principal)
CPT/HCPCS: 77063; 77067

== ENCOUNTER 2023-10-29 19:32 | Emergency (ER) | payer BC, SELFPAY ==
--- NOTE | 2023-10-29 19:35 | ED.URI ---
HPI - URI/Sore Throat General Chief Complaint: Ear Stated Complaint: sinus issue, both ears hurt Time Seen by Provider: 10/29/23 19:44 Source: patient, RN notes reviewed and old records reviewed Mode of arrival: ambulatory Limitations: no limitations History of Present Illness HPI Narrative: 47-year-old female presents to the [facility] with complaints of sinus issues and bilateral ear discomfort. Patient reports that she has had some ear fullness for 2 weeks started with pain on Saturday, 2 days ago as well as sinus pain and pressure. States that she does use [id number] products. Has been seen for this in the past as well as evaluated by primary care provider. Related Data Home Medications Medication Instructions Recorded Confirmed hydrochlorothiazide 25 mg tablet 25 mg PO .QD 07/04/22 10/29/23 cetirizine 10 mg tablet (Zyrtec) 10 mg PO DAILY 03/11/23 10/29/23 Allergies Allergy/AdvReac Type Severity Reaction Status Date / Time Cephalosporins Allergy Intermediate N/V Verified 10/29/23 19:35 metoprolol Allergy Intermediate SOB, Verified 10/29/23 19:35 dizziness amoxicillin [From Augmentin] AdvReac Intermediate Diarrhea Verified 10/29/23 19:35 clavulanic acid AdvReac Intermediate Diarrhea Verified 10/29/23 19:35 [From Augmentin] Review of Systems Review of Systems: All systems reviewed & are unremarkable except as noted in HPI and below Constitutional: Constitutional: Reports no additional constitutional complaints Eyes: Eyes: Reports no additional eye complaints ENT: Reports as per HPI, Reports otalgia and Reports sinus pressure Cardiovascular: Cardiovascular: Reports no additional cardiovascular complaints, Denies chest pain and Denies dyspnea Respiratory: Respiratory: Reports no additional respiratory complaints, Denies chest congestion, Denies cough and Denies dyspnea Gastrointestinal: Gastrointestinal: Reports no additional gastrointestinal complaints, Denies abdominal pain, Denies nausea and Denies vomiting Musculoskeletal: Musculoskeletal: Reports no additional musculoskeletal complaints Integumentary/Breasts: Skin/Breast: Reports system reviewed and no additional complaints, except as docu Neurologic: Reports system reviewed and no additional complaints, except as documented Psychiatric: Psychiatric: Reports no additional psychiatric complaints Allergic/Immunologic: Allergic/Immunologic: Reports no additional allergic/immunologic complaints PMFSH Past Medical History Medical History Anxiety disorder, unspecified BMI 34.0-34.9,adult BMI 36.0-36.9,adult BMI 39.0-39.9,adult Boil, groin COVID-19 Essential (primary) hypertension Eustachian tube disorder Hyperlipidemia Morbid obesity with BMI of 40.0-44.9, adult Surgical History Surgical History History of oophorectomy, unilateral Hx of hysterectomy Family History Family History Father Family history of mental disorder Family history of coronary artery disease Acute myocardial infarction Grandparent Cerebrovascular accident Family history of lung cancer Diabetes mellitus Mother Hypertension Alzheimer's disease Sibling Family history of malignant melanoma Thyroid activity decreased Social History Social History Smoking packs per day: 0.5 Smoking cigarettes per day: 10.0 Years smoked: 37 Smoking pack-years: 18.50 Smoking status: Current every day smoker Tobacco type: cigarettes Second hand tobacco smoke exposure: Yes Alcohol intake: current Drinks per week: 0 Alcohol use details: socially Substance use: never Substance use type: does not use Lack of Transportation: No Lack of Food: Never True Current Housing: I Have Housing Concerned About Future Housing: No
[2023-10-29 19:42] VITALS: BP 144/81; PULSE 80; RESP 16; TEMP 37.3; O2SAT 99
== END 2023-10-29 20:02 | disposition home or self-care (01) ==
PROVIDERS: Emergency Provider Nurse Practitioner; PCP Family Medicine
DX: H65.01 Acute serous otitis media, right ear (principal); F17.210 Nicotine dependence, cigarettes, uncomplicated; I10 Essential (primary) hypertension; E78.5 Hyperlipidemia, unspecified; E66.01 Morbid (severe) obesity due to excess calories; Z68.31 Body mass index [BMI] 31.0-31.9, adult; Z86.16 Personal history of COVID-19
CPT/HCPCS: 87081; 87880; 99213; G0463

== ENCOUNTER 2023-12-14 09:58 | Emergency (ER) | payer BC, SELFPAY ==
[2023-12-14 10:20] VITALS: BP 161/87; PULSE 75; RESP 16; TEMP 36.6; O2SAT 100
--- NOTE | 2023-12-14 10:25 | ED.URI ---
HPI - URI/Sore Throat General Chief Complaint: Upper Respiratory Infection Stated Complaint: Sinus issues Time Seen by Provider: 12/14/23 10:25 Source: patient Mode of arrival: ambulatory Limitations: no limitations History of Present Illness HPI Narrative: 48-year-old female presents with complaint of nasal congestion, sinus pressure, bilateral ear pain, cough, chest congestion. Symptoms getting progressively worse over the last a days. Patient takes daily antihistamine and nasal spray. Also started leftover Medrol Dosepak. States helped the 1st few days but now not helping, has 2 days left. Reports body aches. Afebrile. No shortness breath or chest pain. Patient is a daily smoker. All systems reviewed and negative except as noted above. Related Data Home Medications Medication Instructions Recorded Confirmed hydrochlorothiazide 25 mg tablet 25 mg PO .QD 07/04/22 12/14/23 cetirizine 10 mg tablet (Zyrtec) 10 mg PO DAILY 03/11/23 12/14/23 Allergies Allergy/AdvReac Type Severity Reaction Status Date / Time Cephalosporins Allergy Intermediate N/V Verified 12/14/23 10:01 metoprolol Allergy Intermediate SOB, Verified 12/14/23 10:01 dizziness amoxicillin [From Augmentin] AdvReac Intermediate Diarrhea Verified 12/14/23 10:01 clavulanic acid AdvReac Intermediate Diarrhea Verified 12/14/23 10:01 [From Augmentin] Review of Systems Review of Systems: CONSTITUTIONAL: Denies fever, chills, or sweats. reports fatigue. EYES: Denies visual changes, redness, or discharge. ENT: Reports rhinorrhea, congestion. Denies sore throat. Reports otalgia. CARDIOVASCULAR: Denies chest pain, palpitations, or edema. RESPIRATORY: Reports cough. Denies dyspnea. GASTROINTESTINAL: Denies abdominal pain, nausea, vomiting, or diarrhea. GENITOURINARY: Denies dysuria or hematuria. SKIN: Denies rash or itching. MUSCULOSKELETAL: Denies back pain, joint pain, or myalgia. NEUROLOGIC: Denies headache, numbness, or weakness. PSYCHIATRIC: Denies anxiety or depression. All other systems reviewed are negative, except as documented in HPI. [facility] Past Medical History Medical History Anxiety disorder, unspecified BMI 34.0-34.9,adult BMI 36.0-36.9,adult BMI 39.0-39.9,adult Boil, groin COVID-19 Essential (primary) hypertension Eustachian tube disorder Hyperlipidemia Morbid obesity with BMI of 40.0-44.9, adult Surgical History Surgical History History of oophorectomy, unilateral Hx of hysterectomy Family History Family History Father Family history of mental disorder Family history of coronary artery disease Acute myocardial infarction Grandparent Cerebrovascular accident Family history of lung cancer Diabetes mellitus Mother Hypertension Alzheimer's disease Sibling Family history of malignant melanoma Thyroid activity decreased Social History Social History Smoking packs per day: 0.5 Smoking cigarettes per day: 10.0 Years smoked: 37 Smoking pack-years: 18.50 Smoking status: Current every day smoker Tobacco type: cigarettes Second hand tobacco smoke exposure: Yes Alcohol intake: current Drinks per week: 0 Alcohol use details: socially Substance use: never Substance use type: does not use Lack of Transportation: No Lack of Food: Never True Current Housing: I Have Housing Concerned About Future Housing: No Difficulty Paying Gas/Electric Bills: No Difficulty Paying for Meds: No Currently Unemployed: No Education: Trade/Vocational Certificate Difficulty w/ Childcare or Family Care: No Living arrangements: with family Additional living arrangements comments: Occupation/Education: unemployed Additional occupation/education comments:
== END 2023-12-14 10:45 | disposition home or self-care (01) ==
PROVIDERS: Emergency Provider Nurse Practitioner Family; PCP Family Medicine
DX: J01.90 Acute sinusitis, unspecified (principal); H65.03 Acute serous otitis media, bilateral; F17.210 Nicotine dependence, cigarettes, uncomplicated; I10 Essential (primary) hypertension; E78.5 Hyperlipidemia, unspecified; E66.01 Morbid (severe) obesity due to excess calories; Z68.30 Body mass index [BMI] 30.0-30.9, adult; Z86.16 Personal history of COVID-19
CPT/HCPCS: 99213; G0463

== ENCOUNTER 2024-01-01 08:17 | Outpatient (CLI) | payer BC, SELFPAY ==
--- NOTE | ~2024-01-01 | CT_ITS ---
EXAMINATION: CT sinus wo con DATE: 01/01/2024 08:26 INDICATION: Chronic sinusitis TECHNIQUE: Computed tomography (CT) of the paranasal sinuses was performed without intravenous contra st. The dose-length product was 395.42 mGy-cm. Automated exposure control and iterative reconstructio n technique were employed. COMPARISON: None FINDINGS: There is mucosal thickening of the maxillary, ethmoid, right frontal and sphenoid sinuses. Mastoids are pneumatized. No significant nasal septal deviation. Right ostiomeatal unit is patent. Le ft ostiomeatal unit is partially occluded by soft tissue. Mastoids are pneumatized. IMPRESSION: 1. Moderate sinusitis. Reviewed, dictated and finalized at location B. IMPRESSION: 1. Moderate sinusitis.
== END 2024-01-01 08:18 ==
LOC: GOSHIMG 08:18
PROVIDERS: PCP Family Medicine; Referring Provider Otolaryngology
DX: J32.9 Chronic sinusitis, unspecified (principal)
CPT/HCPCS: 70486

== ENCOUNTER 2024-01-08 14:56 | Outpatient (CLI) | payer BC, SELFPAY ==
--- NOTE | ~2024-01-08 | XR_ITS ---
EXAMINATION: [id number] DATE: 01/08/2024 15:18 INDICATION: Right foot pain. TECHNIQUE: 4 views of right foot including standing views were obtained. COMPARISON: None. FINDINGS: Bone alignment is normal. There is ununited ossification at lateral base of first distal ph alanx. There is mild osteoarthritis of first metatarsophalangeal joint. There are enthesophytes at th e posterior and plantar aspects of calcaneal tuberosity. IMPRESSION: 1. Ununited ossification at lateral base of first distal phalanx, which may be an acute fracture or a chronic finding. 2. Mild polyarticular osteoarthritis. Reviewed, dictated and finalized at location A.
== END 2024-01-08 14:57 | disposition home or self-care (01) ==
PROVIDERS: PCP Family Medicine
DX: M19.071 Primary osteoarthritis, right ankle and foot (principal)
CPT/HCPCS: 73630

== ENCOUNTER 2024-04-04 08:53 | Outpatient (CLI) | payer BC, SELFPAY ==
--- NOTE | ~2024-04-04 | MR_ITS ---
EXAMINATION: MR ankle RT wo con DATE: 04/04/2024 09:29 INDICATION: Right-sided peroneal tendinitis. TECHNIQUE: Magnetic resonance imaging (MRI) of the right ankle was performed without intravenous cont rast. Sequences included sagittal PD-weighted FS FSE, sagittal PD-weighted FSE, coronal PD-weighted F S FSE, coronal PD-weighted FSE, axial PD-weighted FS FSE, and axial PD-weighted FSE. COMPARISON: Right foot radiographs 01/08/2024 FINDINGS: Medial ankle ligaments: There are changes of prior sprain of the deltoid ligament characterized by increased signal in the norris perficial component. The deep component of deltoid ligament is normal. Lateral ankle ligaments: There are changes of prior lateral ankle sprain characterized by thickening and increased signal inte nsity involving the anterior talofibular ligament and calcaneofibular ligament. There are disorganize d fibers in posterior talofibular ligament. Anterior and posterior tibiofibular ligaments are intact. Tendons: There is a longitudinal split tear of peroneus brevis tendon. There is severe tendinopathy of peroneu s brevis tendon at its distal attachment. A skin marker overlies this area. Peroneus longus tendon is normal. The anterior and medial ankle tendons are normal. Achilles tendon is normal. There is subcut aneous edema of the heel posterior to the distal attachment of Achilles tendon, consistent with infla mmation. Plantar fascia: Normal. There is an enthesophyte at the calcaneal attachment. Bones/other: Alignment is normal. No fracture. The talar dome is normal. There is mild midfoot osteoarthritis. Fluid: There is a small ankle joint effusion. IMPRESSION: 1. Tendinopathy and partial tear involving the peroneus brevis tendon. Reviewed, dictated and finalized at location A.
== END 2024-04-04 08:54 | disposition home or self-care (01) ==
LOC: MICIMG 08:53
PROVIDERS: PCP Family Medicine; Visit Provider Podiatrist Foot & Ankle Surgery
DX: M76.71 Peroneal tendinitis, right leg (principal)
CPT/HCPCS: 73721

== ENCOUNTER 2024-08-06 08:12 | Emergency (ER) | payer BC, SELFPAY ==
--- NOTE | 2024-08-06 08:14 | ED.FEMALEGU ---
HPI - Female Genitourinary General Chief complaint: Urogenital-Female Stated complaint: UTI Time Seen by Provider: 08/06/24 08:23 Source: patient, RN notes reviewed and old records reviewed Mode of arrival: ambulatory Limitations: no limitations History of Present Illness HPI Narrative: 48-year-old female presents to the [facility] with concerns of having a UTI. Patient reports Last night started with burning, bladder fullness feeling like she cannot empty her bladder. Also reports nausea without reports feeling of cramping or spasming in the suprapubic area. Has taken ibuprofen and Tylenol denies generalized abdominal pain. No CVA tenderness. Denies fevers patient did take azo last Onset (ago): day(s) (1) Related Data Home Medications ?Medication ?Instructions ?Recorded ?Confirmed ?Last Taken ?Type hydrochlorothiazide 25 mg tablet 25 mg PO .QD 07/04/22 08/06/24 08/21/22 History fluticasone propionate 50 1 spray intranasal DAILY 02/17/24 08/06/24 Unknown History mcg/actuation nasal spray,suspension (Flonase Allergy Relief) loratadine 10 mg tablet (Claritin) 10 mg PO DAILY 02/17/24 08/06/24 Unknown History Allergies Allergy/AdvReac Type Severity Reaction Status Date / Time Cephalosporins Allergy Intermediate N/V Verified 08/06/24 08:16 metoprolol Allergy Intermediate SOB, Verified 08/06/24 08:16 dizziness amoxicillin (From Augmentin) AdvReac Intermediate Diarrhea Verified 08/06/24 08:16 clavulanic acid (From AdvReac Intermediate Diarrhea Verified 08/06/24 08:16 Augmentin) Review of Systems Review of Systems: All systems reviewed & are unremarkable except as noted in HPI and below Constitutional: Constitutional: Reports no additional constitutional complaints ENT: Reports system reviewed and no additional complaints, except as documented Cardiovascular: Cardiovascular: Reports no additional cardiovascular complaints, Denies chest pain and Denies dyspnea Respiratory: Respiratory: Reports no additional respiratory complaints, Denies chest congestion, Denies cough and Denies dyspnea Genitourinary: Genitourinary: Reports as per HPI and Reports dysuria Musculoskeletal: Musculoskeletal: Reports no additional musculoskeletal complaints Integumentary/Breasts: Skin/Breast: Reports system reviewed and no additional complaints, except as docu [facility] Past Medical History Medical History Screening for colon cancer COVID-19 Boil, groin Eustachian tube disorder Anxiety disorder, unspecified Essential (primary) hypertension Hyperlipidemia Surgical History Surgical History History of oophorectomy, unilateral Hx of hysterectomy Family History Family History Father Family history of mental disorder Family history of coronary artery disease Acute myocardial infarction Grandparent Cerebrovascular accident Family history of lung cancer Diabetes mellitus Mother Hypertension Alzheimer's disease Sibling Family history of malignant melanoma Thyroid activity decreased Social History Social History Smoking packs per day: 0.5 Smoking cigarettes per day: 10.0 Years smoked: 37 Smoking pack-years: 18.50 Smoking status: Current every day smoker Tobacco type: cigarettes Second hand tobacco smoke exposure: Yes Alcohol intake: current Drinks per week: 0 Alcohol use details: socially Substance use: never Substance use type: does not use Lack of Transportation: No Lack of Food: Never True Current Housing: I Have Housing Concerned About Future Housing: No Difficulty Paying Gas/Electric Bills: No Difficulty Paying for Meds: No Currently Unemployed: No Education: Trade/Vocational Certificate Difficulty w/ Childcare or Family Care: No Living arrangements: with family Additional living arrangements comments: Occupation/Education: unemployed 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 There is no relevant family history pertinent to the patient complaint. Exam Const: General: cooperative, healthy appearing, comfortable, no acute distress, well developed, alert and well nourished Nutritional Appearance: well nourished Orientation/consciousness: patient oriented x3 Limitations: no limitations HENMT: Head: normal to inspection Eyes: General: appearance normal, both eyes and all related structures Alignment and Position: alignment normal Neck: Neck: normal visual inspection, full ROM, no lymphadenopathy and no meningeal signs Chest: Chest palpation & inspection: normal inspection of the chest Resp: Effort & Inspection: normal respiratory effort and able to speak in complete sentences Auscultation: clear to auscultation bilaterally, no crackles, no rales, no rhonchi and no wheezes Cardio: Rate: regular rate GI: GI Palp: No abdominal tenderness, Yes Soft to palpation, No Tenderness to palpation present (GI) and No Guarding due to palpation present (GI) : General: Yes no CVA tenderness Skin: General skin exam: normal color and no rashes or lesions noted Neuro: General: patient oriented x3, gait normal, moves all extremities and no meningeal signs Cognition (Neuro): normal cognition Speech: normal speech Gait exam (Neuro): Normal gait present Extrem: General: normal to inspection, full ROM, capillary refill normal and normal gait Psych: Appearance: grossly normal and well kempt Mental Status: mental status grossly normal Speech and movement: Normal speech and movement present and Clear speech present Affect: normal affect Attitude: cooperative Course Course Level of Care: Express Care Visit Vital Signs Vital signs: Vital Signs Temperature 96.9 F L 08/06/24 08:31 Pulse Rate 73 08/06/24 08:31 Respiratory Rate 16 08/06/24 08:31 Blood Pressure 176/78 H 08/06/24 08:31 Pulse Oximetry 99 08/06/24 08:31 Oxygen Delivery Room Air 08/06/24 08:31 Temperature 96.9 F L 08/06/24 08:31 Pulse Rate 73 08/06/24 08:31 Respiratory Rate 16 08/06/24 08:31 Blood Pressure 176/78 H 08/06/24 08:31 Pulse Oximetry 99 08/06/24 08:31 Oxygen Delivery Room Air 08/06/24 08:31 Reviewed MDM - Female Genitourinary MDM Narrative Medical decision making narrative: patient sitting in exam room. Nontoxic, vitals stable. Patient presents with symptoms of a UTI that started last night. Patient did take azo, due to symptoms will cover with antibiotic, send for culture. Patient is appropriate for outpatient treatment and follow-up Discharge instructions reviewed with patient, as well as provided in writing per nursing staff. The instructions also include specific and strict return/GO TO THE ER as well as f/u information. All questions have been answered, and the patient deny any further questions with discharge and discharge plan. Some parts of this dictation were generated by voice recognition software and may contain typographical and/or grammatical inaccuracies. Differential Diagnosis Differential diagnosis: Likely urinary tract infection and cystitis Critical Care Time Critical Care Time Critical Care Time: No Discharge Plan Discharge Clinical Impression: Urinary tract infection Qualifiers: Urinary tract infection type: site unspecified Patient Disposition: Home, Self-Care Condition: Stable Instructions: Antibiotic Form, Urinary Tract Infection in Women (DC) Additional Instructions: today your blood pressure was 176/78. Is recommended you follow-up with your primary care provider within the next 2 weeks to have this rechecked. Increased water intake Take Tylenol as needed for pain Take antibiotic as prescribed You have been prescribed an antibiotic. Your urine will be sent to our lab for a culture. If at that time a bacteria grows that is not covered by the antibiotic prescribed you will be notified. Follow-up with primary care For new or worsening symptoms go directly to the emergency room Patient Language: Luxembourgish Prescriptions: New nitrofurantoin monohyd/m-cryst [Macrobid] 100 mg capsule 100 mg PO Q12H 5 Days Qty: 10 0RF Rx Instructions: must administer with a meal/food No Action hydrochlorothiazide 25 mg tablet 25 mg PO .QD alprazolam [Xanax] 0.5 mg tablet 0.5 mg PO TID PRN (Reason: anxiety) Qty: 90 0RF fluticasone propionate [Flonase Allergy Relief] 50 mcg/actuation spray,suspension 1 spray intranasal DAILY Rx Instructions: administer into each nostril loratadine [Claritin] 10 mg tablet 10 mg PO DAILY Follow-up/Referrals: Jaspal Brito MD [Primary Care Provider] - 2 Weeks ( [facility] follow-up. Blood pressure check, 176/78) Stand Alone Forms: Work/School Release IP Time of Disposition: 08:35
[2024-08-06 08:31] VITALS: BP 176/78; PULSE 73; RESP 16; TEMP 36.1; O2SAT 99
== END 2024-08-06 08:39 | disposition home or self-care (01) ==
PROVIDERS: Emergency Provider Nurse Practitioner; PCP Family Medicine
DX: N39.0 Urinary tract infection, site not specified (principal); B96.20 Unspecified Escherichia coli [E. coli] as the cause of diseases classified elsewhere; F17.210 Nicotine dependence, cigarettes, uncomplicated; I10 Essential (primary) hypertension; E78.5 Hyperlipidemia, unspecified; F41.9 Anxiety disorder, unspecified; Z86.16 Personal history of COVID-19
CPT/HCPCS: 87086; 87186; 99213; G0463

== ENCOUNTER 2024-08-13 07:29 | Outpatient (CLI) | payer BC, SELFPAY ==
--- NOTE | ~2024-08-13 | MM_ITS ---
EXAMINATION: MM screening roddy BI w karuna HISTORY: Screening mammogram TECHNIQUE: Craniocaudal and mediolateral oblique 3-D tomosynthesis images were obtained and synthetic 2-D images were generated. CAD analysis was submitted and interpreted. COMPARISON: 04/25/2023, 02/23/2020 BREAST PARENCHYMAL COMPOSITION:Not Dense. There are scattered areas of fibroglandular density. FINDINGS: No suspicious mass, calcification, or architectural distortion are identified in either sher ast to suggest malignancy. There has been no suspicious interval change. IMPRESSION: No mammographic evidence of malignancy. Recommend routine screening mammography in one year. BI-RADS Category 1: Negative Reviewed, dictated and finalized at location . TROMECHANICAL INSPECTOR
--- OUTSIDE RECORDS SUMMARY | 2024-08-13 07:37 | XMS_ITS | Clinical Summary ---
Author Organization [facility] Address [address] [address] Care Team Providers Care Veneer Puller Name Role Phone Jaspal Brito MD Primary Care Provider [phone] Source Comments [facility],non-owned Affiliates and Associated Physician Practices is amultiple site organization consisting of ambulatory clinics and hospital sitesin [place], [place], [place] and [place]. This disclosure is being madepursuant to the Care Everywhere program and may not contain all information available regarding this patient. Last updated 18.[facility] Social History Tobacco Use Types Packs/Day Years Used Date Smoking Tobacco: Never Assessed Sex and Gender Information Value Date Recorded Sex Assigned at Not on file Gender Identity Not on file Sexual Orientation Not on file Plan of Treatment Health Maintenance Due Date Last Done Comments COLOGUARD (AGES 45-75) - COL ON CA SCREENING 1973 COLON MONITORING 1973 COLONOSCOPY - COLON CA SCREENING 1973 CT COLONOGRAPHY - COLON CA SCREENING 1973 Colorectal Cancer Screening 1973 FIT - COLON CA SCREENING 1973 FLEX SIG - COLON CA SCREENING 1973 LIPID TESTING 1973 MAMMOGRAM 1973 PAP SMEAR 1973 HIV SCREENING 1988 HEPATITIS C SCREENING 10/31/1991 DTAP/TDAP/TD VACCINES (1 - Tdap) 1992 HEPATITIS B VACCINE (1 of 3 - 19+ 3-dose series) 1992 PNEUMOCOCCAL VACCINE 50+ (1 of 1 - PCV) 11/05/2023 ZOSTER VACCINE (1 of 2) 11/05/2023 COVID-19 VACCINE (1 - 2023-2 5 season) 2024 INFLUENZA VACCINE (#1) 2024 DEPRESSION SCREENING 06/10/2024 HIB VACCINE Aged Out No longer eligi ble based on patient's age to complete this topic HPV VACCINE Aged Out No longer eligi ble based on patient's age to complete this topic MENINGOCOCCAL (Group B) VACCINE Aged Out No longer eligible based on patient's age to complete this topic MENINGOCOCCAL VACCINE Aged Out No pedro pablo jay eligible based on patient's age to complete this topic PNEUMOCOCCAL VACCINE Aged Out No long er eligible based on patient's age to complete this topic Care Teams Veneer Puller Relationship Specialty Start Date End Date Jaspal Brito MD [address] [place] [address] PCP - General 02/03/10
--- OUTSIDE RECORDS SUMMARY | 2024-08-13 07:37 | XMS_ITS | Patient Health Summary ---
Author Organization [facility] Address [address] [place] [address] Care Team Providers Care Mail Caller Name Role Phone Jaspal Brito MD Primary Care Provider [phone] Note from [facility],non-owned Affiliates and Associated Physician Practices is amultiple site organization consisting of ambulatory clinics and hospital sitesin [place], [place], [place] and [place]. This disclosure is being madepursuant to the Care Everywhere program and may not contain all information available regarding this patient. Last updated 18.[facility] Social History Tobacco Use Types Packs/Day Years Used Date Smoking Tobacco: Never Assessed Sex and Gender Information Value Date Recorded Sex Assigned at Not on file Gender Identity Not on file Sexual Orientation Not on file Procedures * DERMATOPATHOLOGY(Performed 01/20/2020) * DERMATOPATHOLOGY(Performed 01/18/2016) Results * DERMATOPATHOLOGY (01/20/2020 12:00 AM CDT) Only the most recent of2 resultswithin the time period is included. Case Report Dermatopathology Report Case: [id number] Authorizing Provider: Mendez Alvares MD Collected: 01/20/2020 12:00 AM Ordering Location: [facility] DermPath Lab Received: 01/22/2020 02:23 PM Pathologist: Eveline Farris MD Specimen: Skin, left upper lateral breast 0 3:42 PM CDT DERMATOPATHOLOGY LABORATORY Final Diagnosis Specimen A. SKIN, left upper lateral breast: COMPOUND MELANOCYTIC NEVUS (D22.5) TATTOO (L81.8) 0 3:42 PM CDT DERMATOPATHOLOGY LABORATORY Clinical History R?O dys nevus 0 3:42 PM CDT DERMATOPATHOLOGY LABORATORY Gross Description Specimen A: Received is one formalin filled container labeled with the patient's name and designated left upper lateral breast. The specimen consists of a shave biopsy measuring 6x6x2 mm. Jar 0. 0 3:42 PM CDT DERMATOPATHOLOGY LABORATORY Microscopic Description Specimen A. SKIN, left upper lateral breast: There are nests of melanocytes at the dermal-epidermal junction and within the dermis. There is granular pigment in macrophages and free within the dermis. 0 3:42 PM CDT DERMATOPATHOLOGY LABORATORY Disclaimer An external and internal positive and negative controls are appropriate for the histochemical, immunohistochemical and immunofluorescence stain(s) in this case (if any), except where stated explicitly. The performance characteristics of the stain(s) cited in this report were developed and its performance characteristic determined by the Dermatopathology Laboratory at [facility], directed by Dr. Ann Samuels. These tests need not be, and therefore are not, approved by the [place] Food and Drug Administration. The tests are used for clinical purposes. Billing Codes Specimen Charges Stain Charges 26707 1 0 3:42 PM CDT DERMATOPATHOLOGY LABORATORY Embedded Images 0 3:42 PM CDT DERMATOPATHOLOGY LABORATORY Pathology/Cytolog y TISSUE SPECIMEN FROM SKIN / Unknown 01/20/2020 01/22/2020 2:23 PM CDT Mendez Alvares MD LAB - PATHOLOGY/CYTO LOGY ORDERABLES DERMATOPATHOLOGY LABORATORY [facility] - Department of Dermatology [facility]/[address] [address], [facility] [phone] Care Teams Mail Caller Relationship Specialty Start Date End Date Jaspal Brito MD [address] [place] [address] [facility] - General 02/03/10
--- OUTSIDE RECORDS SUMMARY | 2024-08-13 07:37 | XMS_ITS | Referral Summary ---
Author Organization [facility] Address [address] [place] [address] Care Team Providers Care Branch Examiner Name Role Phone Jaspal Brito MD Primary Care Provider [phone] Source Comments [facility],non-research medical center Affiliates and Associated Physician Practices is amultiple site organization consisting of ambulatory clinics and hospital sitesin [place], [place], [place] and [place]. This disclosure is being madepursuant to the Care Everywhere program and may not contain all information available regarding this patient. Last updated 18.[facility] Social History Tobacco Use Types Packs/Day Years Used Date Smoking Tobacco: Never Assessed Sex and Gender Information Value Date Recorded Sex Assigned at Not on file Gender Identity Not on file Sexual Orientation Not on file Plan of Treatment Not on file Care Teams Branch Examiner Relationship Specialty Start Date End Date Jaspal Brito MD [address] [place] [address] PCP - General 02/03/10
--- OUTSIDE RECORDS SUMMARY | 2024-08-13 07:37 | XMS_ITS | Encounter Summary ---
Author Organization [facility] Address [address] [place] [address] Care Team Providers Care Belling Machine Operator Name Role Phone Jaspal Brito MD Primary Care Provider [phone] Encounter Details Date Type Department Care Team (Late st Contact Info) Description 01/22/2020 Lab Requisition [facility] DermPath Lab [address] [place] [address] Mendez Alvares MD [address] [place] [id number] Social History Tobacco Use Types Packs/Day Years Used Date Smoking Tobacco: Never Assessed Sex and Gender Information Value Date Recorded Sex Assigned at Not on file Gender Identity Not on file Sexual Orientation Not on file documented as of this encounter Plan of Treatment Not on file documented as of this encounter Procedures Procedure Name Priority Date/Time Associated Diagnosis Comments DERMATOPATHOLOGY Routine 01/20/2020 12:0 0 AM CDT documented in this encounter Results * DERMATOPATHOLOGY (01/20/2020 12:00 AM CDT) Case Report Dermatopathology Report Case: [id number] Authorizing Provider: Mendez Alvares MD Collected: 01/20/2020 12:00 AM Ordering Location: [facility] DermPath Lab Received: 01/22/2020 02:23 PM [...] characteristic determined by the Dermatopathology Laboratory at [facility], directed by Dr. Ann Samuels. These tests need not be, and therefore are not, approved by the [place] Food and Drug Administration. The tests are used for clinical purposes. Billing Codes Specimen Charges Stain Charges 78151 1 0 3:42 PM CDT DERMATOPATHOLOGY LABORATORY Embedded Images 0 3:42 PM CDT DERMATOPATHOLOGY LABORATORY Pathology/Cytolog y TISSUE SPECIMEN FROM SKIN / Unknown 01/20/2020 01/22/2020 2:23 PM CDT Mendez Alvares MD LAB - PATHOLOGY/CYTO LOGY ORDERABLES DERMATOPATHOLOGY LABORATORY [facility] - Department of Dermatology [facility] [place]/[address] [phone] documented in this encounter Visit Diagnoses Not on filedocumented in this encounter Care Teams Belling Machine Operator Relationship Specialty Start Date End Date Jaspal Brito MD [address] [place] [address] PCP - General 02/03/10 documented as of this encounter
--- OUTSIDE RECORDS SUMMARY | 2024-08-13 07:37 | XMS_ITS | Clinical Summary ---
Author Organization [facility] Address Critical access hospital[address] [place] [address] Care Team Providers Care Order Manager Name Role Phone Jaspal Brito MD Primary Care Provider [phone] Allergies Active Allergy Reactions Criticality Noted Date Comments Cefuroxime Nausea Only 01/22/2022 Losartan Nausea Only 05/21/2022 Medications albuterol sulfate HFA 108 (90 Base) MCG/ACT inhaler Inhale 2 puffs into the lungs every 4 (four) hours as needed. FOR WHEEZING OR SHORTNESS OF BREATH 2 Active ALPRAZolam (XANAX) 0.5 MG tablet Take 0.5 mg by mouth 3 (three) times daily as needed. FOR ANXIETY 2 Active nitroglycerin (NITROSTAT) 0.[address] 1 tablet (0.4 mg total) under the tongue every 5 (five) minutes as needed for Chest Pain. Maximum of 3 doses. IF 3 DOSES TAKEN, CALL 911. 25 tablet 1 2 Active dexamethasone (DECADRON) 120 MG/30ML injection USE 1 ML PER IONTOPHORESIS SESSION 4 Active methylPREDNISo REMIGIO cheng, (MEDROL DOSEPAK) 4 MG tablet follow package directions 4 Active levoFLOXacin (LEVAQUIN) 500 MG tablet Take 1 tablet (500 mg total) by mouth daily. 4 Active HYDROcodone-ac etaminophen (NORCO) 5-325 MG tablet 4 Active XHANCE 93 MCG/ACT Exhaler Suspension 4 Active hydroCHLOROthi azide (HYDRODIURIL) 25 MG tablet TAKE 1 TABLET(25 MG) BY MOUTH EVERY MORNING 90 tablet Active Active Problems No known active problems Immunizations Name Administration Dates Next Due Hepatitis A (Havrix 1440 El.U) 03/05/2013 Tdap (Generic) 08/27/2020 Social History Tobacco Use Types Packs/Day Years Used Date Smoking Tobacco: Every Day Cigarettes Smokeless Tobacco: Never Tobacco Cessation:Ready to Q uit: Not Asked; Counseling Given: Not Answered Alcohol Use Standard Drinks/Week Comments Never 0 (1 standard drink = 0.6 oz pur e alcohol) Comments No Sex and Gender Information Value Date Recorded Sex Assigned at Not on file Legal Sex Female 8:51 AM CDT Gender Identity Not on file Sexual Orientation Not on file Last Filed Vital Signs Vital Sign Reading Time Taken Comments Blood Pressure 144/86 04/28/2024 11:59 AM DINING ROOM ATTENDANT [place] Pulse 69 04/28/2024 11:59 AM DINING ROOM ATTENDANT [place] Temperature 36.6 C (97.8 F) 01/22/2022 8:54 AM CDT Respiratory Rate 18 01/22/2022 5:10 PM CDT Oxygen Saturation 97% 04/28/2024 11:59 AM DINING ROOM ATTENDANT [place] Inhaled Oxygen Concentration - - Weight 88 kg (194 lb) 04/28/2024 11:59 AM DINING ROOM ATTENDANT [place] Height 162.6 cm (5' 4 ) 04/28/2024 11:59 AM DINING ROOM ATTENDANT [place] Body Mass Index 33.3 04/28/2024 11:59 AM DINING ROOM ATTENDANT [place] Plan of Treatment Health Maintenance Due Date Last Done Comments Colorectal Cancer Screening Colonoscopy (10 Years) 1973 Annual Physical 1976 Pneumococcal Vaccine: Pediat rics (0 to 5 Years) and At-Risk Patients (6 to 64 Years) (1 of 2 - PCV) 11/05/1979 Hepatitis C 11/05/1991 Hepatitis B Vaccines (1 of 3 - 19+ 3-dose series) 1992 Mammogram Screening 2013 Zoster Vaccines (1 of 2) 11/05/2023 COVID-19 Vaccine (1 - 2023-2 5 season) 2024 Influenza Adult (#1) 2024 DTaP, Tdap and Td Vaccines ( 2 - Td or Tdap) 08/27/2030 08/27/2020 Meningococcal B Vaccine Aged Out No l onger eligible based on patient's age to complete this topic Meningococcal Vaccine Aged Out No pedro pablo jay eligible based on patient's age to complete this topic RSV Immunizations Under 20 Months Aged Out No longer eligible based on patient's age to complete this topic Insurance [facility] Care Teams Order Manager Relationship Specialty Start Date End Date Jaspal Brito MD [address] [place] [address] PCP - General FAMILY PRACTICE 01/22/22
--- OUTSIDE RECORDS SUMMARY | 2024-08-13 07:38 | XMS_ITS | Continuity of Care Document ---
Author Organization [facility] Address [address] [place] [address] Exec utive [facility] [address] [place] [address] Phone Care Team Providers Care Therapy Coordinator Name Role Phone Shayy Ha Unavailable Unavailable Procedures Procedure Date Remove Foreign Body From Eye Advance Directives Directive Yes / No Effective Date File Name No Information Encounters Encounter Description Practice Location Reason(s) For Visit Diagnoses Date Provider Providers Copied on Encounter [facility], [address] [place] [address] [address], [place], [place], [id number], [place] tel:[phone] SEC [facility] [place] No Information [address] [facility] [place] , [address], [place], [address], [place]. tel:[phone] Family History Family Member Type Diagnosis Age At Onset No Information Payers Payer name Insurance type Covered republican ID Authoriza tion(s) BCBS [place] Out Of State [id number] Social History Type Description Quantity Date Captured Comments Sex Female Smoking Status No Information Chief Complaint And Reason For Visit No Information Reason For Referral Reason For Referral No Information History Of Present Illness Encounter Date Complaint History Of Prese nt Illness No Information Functional Status Date Functional Assessmen t No Information Instructions Date Instruction Additional Infor mation No Information Assessments Type Assessment Date No Information Patient Care Teams Name Effective Dates (start - stop) Status Members No Information
--- OUTSIDE RECORDS SUMMARY | 2024-08-13 07:38 | XMS_ITS | Encounter Summary ---
Author Organization [facility] Address [address] [place] [address] Care Team Providers Care Graphic Art Technician Name Role Phone Jaspal Brito MD Primary Care Provider [phone] Encounter Details Date Type Department Care Team (Late st Contact Info) Description 03/06/2022 Abstract [facility] [address] Rosa Wilson MA Social History Tobacco Use Types Packs/Day Years Used Date Smoking Tobacco: Every Day Cigarettes Smokeless Tobacco: Never Alcohol Use Standard Drinks/Week Comments Never 0 (1 standard drink = 0.6 oz pur e alcohol) Comments No Sex and Gender Information Value Date Recorded Sex Assigned at Not on file Legal Sex Female 8:51 AM CDT Gender Identity Not on file Sexual Orientation Not on file COVID-19 Exposure Response Date Recorded In the last 10 days, have yo u been in contact with someone who was confirmed or suspected to have Coronavirus/COVID-19? No / Unsure 02/14/2022 7:33 AM CDT documented as of this encounter Plan of Treatment Not on file documented as of this encounter Procedures Procedure Name Priority Date/Time Associated Diagnosis Comments COMPREHENSIVE METABOLIC PANEL Routine 04/25/2023 BASIC METABOLIC PANEL Routine 06/06/2022 BASIC METABOLIC PANEL Routine 03/05/2022 MAGNESIUM Routine 03/05/2022 documented in this encounter Results * (ABNORMAL) COMPREHENSIVE METABOLIC PANEL (04/25/2023) SODIUM S/P/B 142 POTASSIUM S/P/B 3.8 CO2 33 CHLORIDE S/P/B 103 GLUCOSE 117 mg/dL CALCIUM S/P/B 9.3 BUN 14 CREATININE S/P/B 0.59 0.5 - 1.0 EGFR NON-AFR. AMER. 110(A) <=90 ALKALINE PHOSPHATASE S/P/B 90 ALT 14 AST 15 BILIRUBIN TOTAL S/P/B 0.4 ALBUMIN S/P/B 4.3 3.5 - 5.0 TOTAL PROTEIN S/P/B 6.7 GLOBULIN 2.4 04/25/2023 us Default History Genericprovider LABORATORY Final Result * (ABNORMAL) BASIC METABOLIC PANEL (06/06/2022) SODIUM S/P/B 137 POTASSIUM S/P/B 3.7 CO2 31 CHLORIDE S/P/B 102 GLUCOSE 89 mg/dL CALCIUM S/P/B 9.3 BUN 14 CREATININE S/P/B 0.53 0.5 - 1.0 EGFR NON-AFR. AMER. 114(A) <=90 06/06/2022 us Default History Genericprovider LABORATORY Final Result * MAGNESIUM (03/05/2022) MAGNESIUM 2.0 03/05/2022 us Doc [facility] Abstract LABORATORY Final Result * (ABNORMAL) BASIC METABOLIC PANEL (03/05/2022) SODIUM S/P/B 138 POTASSIUM S/P/B 3.8 CO2 29 CHLORIDE S/P/B 102 GLUCOSE 90 mg/dL CALCIUM S/P/B 9.2 BUN 13 CREATININE S/P/B 0.58 0.5 - 1.0 EGFR NON-AFR. AMER. 112(A) <=90 03/05/2022 us Doc [facility] Abstract LABORATORY Final Result documented in this encounter Visit Diagnoses Not on filedocumented in this encounter Care Teams Graphic Art Technician Relationship Specialty Start Date End Date Jaspal Brito MD [address] [place] [address] PCP - General FAMILY PRACTICE 01/22/22 documented as of this encounter
--- OUTSIDE RECORDS SUMMARY | 2024-08-13 07:38 | XMS_ITS | CONTINUITY OF CARE DOCUMENT ---
Author Name raven carbajal Address Unknown Organization [facility] Address [address] [place] [address] [address] [place] [address] Phone [phone] Care Team Providers Care Fireboat Operator Name Role Phone LEONCIO BARROSO, ALFRED F Unavailable [phone] LEONCIO BARROSO, ALFRED F Unavailable [phone] INSURANCE PROVIDERS Payer name Policy type / Coverage type [place] red democrat ID COVENTRY- OPEN ACCESS/PPO Other [id number]
== END 2024-08-13 07:30 | disposition home or self-care (01) ==
LOC: ANHIMG 07:32
PROVIDERS: PCP Family Medicine; Visit Provider Obstetrics & Gynecology
DX: Z12.31 Encounter for screening mammogram for malignant neoplasm of breast (principal)
CPT/HCPCS: 77063; 77067

== ENCOUNTER 2024-09-12 08:07 | Outpatient (CLI) | payer BC, SELFPAY ==
--- OUTSIDE RECORDS SUMMARY | 2024-09-12 08:11 | XMS_ITS | CONTINUITY OF CARE DOCUMENT ---
Author Name raven carbajal Address Unknown Organization [facility] Address [address] [place] [address] [address] [place] [address] Phone [phone] Care Team Providers Care Market Investigator Name Role Phone LEONCIO BARROSO, ALFRED F Unavailable [phone] LEONCIO BARROSO, ALFRED F Unavailable [phone] INSURANCE PROVIDERS Payer name Policy type / Coverage type [place] red democrat ID COVENTRY- OPEN ACCESS/PPO Other [id number]
--- OUTSIDE RECORDS SUMMARY | 2024-09-12 08:11 | XMS_ITS | Encounter Summary ---
Author Organization [facility] Address [address] [place] [address] Care Team Providers Care Relay Record Clerk Name Role Phone Jaspal Brito MD Primary Care Provider [phone] Encounter Details Date Type Department Care Team (Late st Contact Info) Description 01/22/2020 Lab Requisition [facility] [address] [facility], [place] [address] Mendez Alvares MD [address] [place] [id number] Social History Tobacco Use Types Packs/Day Years [...] AM CDT) Case Report Dermatopathology Report Case: [id number] Authorizing Provider: Mendez Alvares MD Collected: 01/20/2020 12:00 AM Ordering Location: [facility] Received: 01/22/2020 02:23 PM Pathologist: [...] characteristic determined by the Dermatopathology Laboratory at [facility], directed by Dr. Ann Samuels. These tests need not be, and therefore are not, approved by the [place] Food and Drug Administration. The tests are used for clinical purposes. Billing Codes Specimen Charges Stain Charges 80186 1 0 3:42 PM CDT DERMATOPATHOLOGY LABORATORY Embedded Images 0 3:42 PM CDT DERMATOPATHOLOGY LABORATORY Pathology/Cytolog y TISSUE SPECIMEN FROM SKIN / Unknown 01/20/2020 01/22/2020 2:23 PM CDT Mendez Alvares MD LAB - PATHOLOGY/CYTO LOGY ORDERABLES DERMATOPATHOLOGY LABORATORY [facility] - Department of Dermatology It Software Engineer [place]/[address] [phone] documented in this encounter Visit Diagnoses Not on filedocumented in this encounter Care Teams Relay Record Clerk Relationship Specialty Start Date End Date Jaspal Brito MD [address] [place] [address] PCP - General 02/03/10 documented as of this encounter
--- OUTSIDE RECORDS SUMMARY | 2024-09-12 08:11 | XMS_ITS | Continuity of Care Document ---
Author Organization [facility] Address [address] [place] [address] Exec utive [facility] [address] [place] [address] Phone Care Team Providers Care Nuclear Chemistry Technician Name Role Phone Shayy Ha Unavailable Unavailable Procedures Procedure Date Remove Foreign Body From Eye Advance Directives Directive Yes / No Effective Date File Name No Information Encounters Encounter Description Practice Location Reason(s) For Visit Diagnoses Date Provider Providers Copied on Encounter [facility], [address] [place] [address] [address], [place], [place], [address], [place] tel:[phone] SEC [facility] [place] No Information [address]. [address] [facility] , [address], [place], [address], [place]. tel:[phone] Family History Family Member Type Diagnosis Age At Onset No Information Payers Payer name Insurance type Covered green party ID Authoriza tion(s) BCBS [place] Out Of [place] [id number] Social History Type Description Quantity Date Captured [...]
--- OUTSIDE RECORDS SUMMARY | 2024-09-12 08:11 | XMS_ITS | Clinical Summary ---
Author Organization [facility] Address [facility] [place] [address] Care Team Providers Care Imagery Analyst Name Role Phone Jaspal Brito MD Primary Care Provider [phone] Allergies Active Allergy Reactions Criticality Noted Date Comments Cefuroxime Nausea Only 01/22/2022 Losartan Nausea Only 05/21/2022 Medications albuterol sulfate HFA 108 (90 Base) MCG/ACT inhaler Inhale 2 puffs into the lungs every 4 (four) hours as needed. FOR WHEEZING OR SHORTNESS OF BREATH 09/06/19 22 Active ALPRAZolam (XANAX) 0.5 MG tablet Take 0.5 mg by mouth 3 (three) times daily as needed. FOR ANXIETY 02/09/20 22 Active nitroglycerin (NITROSTAT) 0.[address] 1 tablet (0.4 mg total) under the tongue every 5 (five) minutes as needed for Chest Pain. Maximum of 3 doses. IF 3 DOSES TAKEN, CALL 911. 25 tablet 1 02/15/20 22 Active dexamethasone (DECADRON) 120 MG/30ML injection USE 1 ML PER IONTOPHORESIS SESSION 04/16/20 24 Active methylPREDNIS olone, REMIGIO, (MEDROL DOSEPAK) 4 MG tablet follow package directions 04/24/20 24 Active levoFLOXacin (LEVAQUIN) 500 MG tablet Take 1 tablet (500 mg total) by mouth daily. 04/24/20 24 Active HYDROcodone-a cetaminophen (NORCO) 5-325 MG tablet 04/20/20 24 Active XHANCE 93 MCG/ACT Exhaler Suspension 03/30/20 24 Active hydroCHLOROth iazide (HYDRODIURIL) 25 MG tablet TAKE 1 TABLET(25 MG) BY MOUTH EVERY MORNING 90 tablet 08/22/19 25 Active hydroCHLOROth iazide (HYDRODIURIL) 25 MG tablet TAKE 1 TABLET(25 MG) BY MOUTH EVERY MORNING 90 tablet 05/21/20 24 025 Discontinued Active Problems No known active problems Immunizations [...] Comments Blood Pressure 144/86 04/28/2024 11:59 AM TUBE SPLICER Pulse 69 04/28/2024 11:59 AM TUBE SPLICER Temperature 36.6 C (97.8 F) 01/22/2022 8:54 AM CDT Respiratory Rate 18 01/22/2022 5:10 PM CDT Oxygen Saturation 97% 04/28/2024 11:59 AM TUBE SPLICER Inhaled Oxygen Concentration - - Weight 88 kg (194 lb) 04/28/2024 11:59 AM TUBE SPLICER Height 162.6 cm (5' 4 ) 04/28/2024 11:59 AM TUBE SPLICER Body Mass Index 33.3 04/28/2024 11:59 AM TUBE SPLICER Plan of Treatment Health Maintenance Due Date [...] Vaccines (1 of 2) 11/05/2023 COVID-19 Vaccine ( - 2023-2 5 season) 2024 DTaP, Tdap and Td Vaccines ( [...] patient's age to complete this topic Insurance [facility] Care Teams Imagery Analyst Relationship Specialty Start Date End Date Jaspal Brito MD [address] [place] [address] PCP - General FAMILY PRACTICE 01/22/22
--- OUTSIDE RECORDS SUMMARY | 2024-09-12 08:11 | XMS_ITS | Clinical Summary ---
Author Organization [facility] Address [address] [place] [address] Care Team Providers Care Assistant Professor Of Communication Name Role Phone Jaspal Brito MD Primary Care Provider [phone] Source Comments [facility],non-owned Affiliates and Associated Physician Practices is amultiple site organization consisting of ambulatory clinics and hospital sitesin [place], [place], [place] and [place]. This disclosure is being madepursuant to the Care Everywhere program and may not contain all information available regarding this patient. Last updated 18.[facility] Social History Tobacco Use Types Packs/Day Years [...] to complete this topic MENINGOCOCCAL (Group B) VACC INE SHARED DECISION-MAKING Aged Out No longer eligibl e based on patient's age to complete this topic MENINGOCOCCAL GROUPS A/C/Y/W VACCINE Aged Out No longer eligible b ased on patient's age to complete this topic PNEUMOCOCCAL VACCINE Aged Out No long er eligible based on patient's age to complete this topic Care Teams Assistant Professor Of Communication Relationship Specialty Start Date End Date Jaspal Brito MD [address] [place] [address] PCP - General 02/03/10
--- OUTSIDE RECORDS SUMMARY | 2024-09-12 08:11 | XMS_ITS | Encounter Summary ---
Author Organization [facility] Address [address] [place] [address] Care Team Providers Care Cricket Coach Name Role Phone Jaspal Brito MD Primary Care Provider [phone] Encounter Details Date Type Department Care Team (Late st Contact Info) Description 03/06/2022 Abstract [facility] [address] Rosa Wilson MA Social History Tobacco Use [...] on filedocumented in this encounter Care Teams Cricket Coach Relationship Specialty Start Date End Date Jaspal Brito MD [address] [place] [address] PCP - General FAMILY PRACTICE 01/22/22 documented as of this encounter
--- NOTE | 2024-09-12 08:18 | ECG_ITS ---
Test Date: 2024-09-12 08:26:06 Measurements Intervals [place] Rate: 66 P: 64 MA: 197 QRS: -1 QRSD: 120 T: 46 QT: 403 QTc: 422 Interpretive Statements SINUS RHYTHM INCOMPLETE RIGHT BUNDLE BRANCH BLOCK CANNOT R/O SEPTAL INFARCT, AGE INDETERMINATE CONSIDER INFERIOR INFARCT, AGE INDETERMINATE ABNORMAL ECG No previous ECG available for comparison Electronically Signed On 09-12-2024 09:44:17 CDT by Miguel A Lozano D.O.
[2024-09-12 08:58] LABS: Anion Gap 10 mmol/L (4-12); Blood Urea Nitrogen 13 mg/dL (7-17); Calcium 8.9 mg/dL (8.4-10.2); Carbon Dioxide 27 mmol/L (22-30); Chloride 104 mmol/L (98-107); Estimated Glomerular Filt Rate > 60; Glucose 96 mg/dL (65-110); Potassium 3.1 mmol/L (3.4-5.0); Sodium 141 mmol/L (137-145)
== END 2024-09-12 08:08 | disposition home or self-care (01) ==
LOC: ANHLAB 08:10
PROVIDERS: PCP Family Medicine; Visit Provider Anesthesiology
DX: I10 Essential (primary) hypertension (principal); Z79.899 Other long term (current) drug therapy; Z72.0 Tobacco use; Z01.818 Encounter for other preprocedural examination
CPT/HCPCS: 36415; 80048; 93005

== ENCOUNTER 2024-09-18 00:23 | Day surgery (SDC) | payer BC, SELFPAY ==
[2024-09-09 12:16] VITALS: BMI 33.3
--- NOTE | 2024-09-09 12:18 | PC.NURSE ---
Report to the Outpatient Waiting Room, entrance under the green pavilion located off [facility], at time _0800_ on date _[id number]_. Planned Procedure Time: _1000_.? Time changes happen often and if your time is changed the preop area will call you the afternoon before. - You and your visitor will be asked to self-screen and do not enter if you have any COVID symptoms. Please call surgeon if you need to reschedule. - A mask is optional within the hospital at this time. Patients may have clear liquids (water, carbonated beverages, clear teas, apple juice) until 3 hours prior to surgery with a maximum of 20 ounces. - No food from midnight until time of surgery and no smoking, or chewing tobacco (or any form of nicotine). No chewing gum, candy or mints. Take only the following medications with a SIP of water on the morning of surgery: __Xhance and if needed Alprazolam DO NOT STOP ANY OF YOUR OTHER PRESCRIPTION MEDICATIONS PRIOR TO SURGERY EXCEPT THE FOLLOWING Hold all vitamins and supplements for 3 days per anesthesiologist. Medications to discontinue per physician Date to take last dose Please no make-up, nail welsh, hairspray, perfume, deodorant, or body powder the day of surgery.? No jewelry (including any body piercings) or valuables the day of surgery, leave them at home.? Please take a shower or bath the night before, or the morning of, surgery with an antibacterial soap.? Wear comfortable, loose fitting clothing.? - Jewelry must be removed prior to entering the operating room.? Rings and piercings that are not removed may be cut off. - The hospital will not accept responsibility for valuables.? - Please leave all valuables, including medications, at home the day of surgery. If you are going home after surgery, a licensed gas truck driver must drive you home.? - NO public transportation without another adult if you receive anesthesia. - We recommend that an adult stay with you for 24 hours following discharge. - We also recommend that you do not drive, make important decision, drink alcoholic beverages, or take any drugs that were not prescribed by your health care provider for at least 24 hours after your discharge time. Follow any additional instructions given to you from your surgeon. Telephone instructions given to ___Christpablito__and asked if any additional questions and then verbalized understanding. Patient advised to call surgeon office or pre surgery nurse liaison [phone] if any additional questions.
[2024-09-18] VITALS (9 sets, daily range): BP systolic 124–169; BP diastolic 71–114; PULSE 66–83; RESP 12–16; TEMP 36.1–36.2; O2SAT 96–100
--- OUTSIDE RECORDS SUMMARY | 2024-09-18 00:25 | XMS_ITS | Encounter Summary ---
Author Organization [facility] Address [address] [place] [address] Care Team Providers Care Freight Manager Name Role Phone Jaspal Brito MD Primary Care Provider [phone] Encounter Details Date Type Department Care Team (Late st Contact Info) Description 01/22/2020 Lab Requisition [facility] [address] [facility] [place] [address] Mendez Alvares MD [address] [place] [id number] Social History Tobacco Use Types Packs/Day Years [...] AM CDT) Case Report Dermatopathology Report Case: [id number] Authorizing Provider: Mendez Alvares MD Collected: 01/20/2020 12:00 AM Ordering Location: [facility] Received: 01/22/2020 02:23 PM [...] characteristic determined by the Dermatopathology Laboratory at [facility], directed by Dr. Ann Samuels. These tests need not be, and therefore are not, approved by the [place] Food and Drug Administration. The tests are used for clinical purposes. Billing Codes Specimen Charges Stain Charges 16851 1 0 3:42 PM CDT DERMATOPATHOLOGY LABORATORY Embedded Images 0 3:42 PM CDT DERMATOPATHOLOGY LABORATORY Pathology/Cytolog y TISSUE SPECIMEN FROM SKIN / Unknown 01/20/2020 01/22/2020 2:23 PM CDT Menedz Alvares MD LAB - PATHOLOGY/CYTO LOGY ORDERABLES DERMATOPATHOLOGY LABORATORY [facility] - Department of Dermatology Motor Vehicle Light Assembler [place]/[address] [phone] documented in this encounter Visit Diagnoses Not on filedocumented in this encounter Care Teams Freight Manager Relationship Specialty Start Date End Date Jaspal Brito MD [address] [place] [address] PCP - General 02/03/10 documented as of this encounter
--- OUTSIDE RECORDS SUMMARY | 2024-09-18 00:25 | XMS_ITS | Clinical Summary ---
Author Organization [facility] Address [address] [facility] [place] [place] [address] Care Team Providers Care First Leveler Name Role Phone Jaspal Brito MD Primary Care Provider [phone] Source Comments [facility],non-owned Affiliates and Associated Physician Practices is amultiple site organization consisting of ambulatory clinics and hospital sitesin [place], [place], [place] and [place]. This disclosure is being madepursuant to the Care Everywhere program and may not contain all information available regarding this patient. Last updated 18.[facility] Social History Tobacco Use [...] VACCINE (1 - 2023-2 5 season) 2024 DEPRESSION SCREENING 06/10/2024 INFLUENZA VACCINE (Season Ended) 2025 HIB VACCINE Aged Out No longer eligi [...] age to complete this topic Care Teams First Leveler Relationship Specialty Start Date End Date Jaspal Brito MD [address] [place] [address] PCP - General 02/03/10
--- OUTSIDE RECORDS SUMMARY | 2024-09-18 00:26 | XMS_ITS | Encounter Summary ---
Author Organization [facility] Address [address] [place] [address] Care Team Providers Care Chief Operator Reformer Name Role Phone Jaspal Brito MD Primary Care Provider [phone] Encounter Details Date Type Department Care Team (Late st Contact Info) Description 03/06/2022 Abstract [facility] [address] Rosa Wilson MA Social History Tobacco Use [...] on filedocumented in this encounter Care Teams Chief Operator Reformer Relationship Specialty Start Date End Date Jaspal Brito MD [address] [address] PCP - General FAMILY PRACTICE 01/22/22 documented as of this encounter
--- OUTSIDE RECORDS SUMMARY | 2024-09-18 00:26 | XMS_ITS | Clinical Summary ---
Author Organization [facility] Address [facility] [place] [address] Care Team Providers Care Jig Borer Name Role Phone Jaspal Brito MD Primary Care Provider [phone] Allergies Active Allergy Reactions Criticality Noted Date [...] Discontinued Active Problems No known active problems Encounters Date Type Department Care Team Description 09/14/[address] [facility] [place] [facility] [facility], [address] [address] Justen Michaud MD Ekg from Last 3 Months Immunizations Name Administration Dates Next Due Hepatitis [...] Comments Blood Pressure 144/86 04/28/2024 11:59 AM DERMATOLOGIST MANAGING PARTNER Pulse 69 04/28/2024 11:59 AM DERMATOLOGIST MANAGING PARTNER Temperature 36.6 C (97.8 F) 01/22/2022 8:54 AM CDT Respiratory Rate 18 01/22/2022 5:10 PM CDT Oxygen Saturation 97% 04/28/2024 11:59 AM DERMATOLOGIST MANAGING PARTNER Inhaled Oxygen Concentration - - Weight 88 kg (194 lb) 04/28/2024 11:59 AM DERMATOLOGIST MANAGING PARTNER Height 162.6 cm (5' 4 ) 04/28/2024 11:59 AM DERMATOLOGIST MANAGING PARTNER Body Mass Index 33.3 04/28/2024 11:59 AM DERMATOLOGIST MANAGING PARTNER Plan of Treatment Health Maintenance Due Date [...] Vaccine (1 - 2023-2 5 season) 2024 DTaP, Tdap [...] patient's age to complete this topic Insurance [facility] Care Teams Jig Borer Relationship Specialty Start Date End Date Jaspal Brito MD [address] [address] PCP - General FAMILY PRACTICE 01/22/22
--- OUTSIDE RECORDS SUMMARY | 2024-09-18 00:26 | XMS_ITS | CONTINUITY OF CARE DOCUMENT ---
Author Name raven carbajal Address Unknown Organization [facility] Address [address] [place] [address] [address] [place] [address] Phone [phone] Care Team Providers Care Tubular Products Fabricator Name Role Phone LEONCIO BARROSO, ALFRED F Unavailable [phone] LEONCIO BARROSO, ALFRED F Unavailable [phone] INSURANCE PROVIDERS Payer name Policy type / Coverage type [place] red republican ID COVENTRY- OPEN ACCESS/PPO Other [id number]
--- OUTSIDE RECORDS SUMMARY | 2024-09-18 00:26 | XMS_ITS | Continuity of Care Document ---
Author Organization [facility] [place] [address] [place] [address] [facility] [address] [place] [address] Phone Care Team Providers Care Desizing Machine Back Tender Name Role Phone Shayy Ha Unavailable Unavailable Procedures Procedure Date Remove Foreign Body From Eye Advance Directives Directive Yes / No Effective Date File Name No Information Encounters Encounter Description Practice Location Reason(s) For Visit Diagnoses Date Provider Providers Copied on Encounter [facility], [address] [place] [address] [address], [place], [place], [id number], [place] tel:[phone] [facility] No Information [address] Lucas. [address] , [address], [place], [address], [place]. tel:[phone] Family History Family Member Type Diagnosis Age At Onset No Information Payers Payer name Insurance type Covered libertarian ID Authoriza tion(s) [employer] [place] Out Of State [id number] Social History Type Description Quantity Date Captured [...]
--- OUTSIDE RECORDS SUMMARY | 2024-09-18 00:26 | XMS_ITS | Encounter Summary ---
Author Organization [facility] Address [address] [place] [address] Care Team Providers Care Certified Medical Technician Assistant Name Role Phone Jaspal Brito MD Primary Care Provider Encounter Details Date Type Department Care Team (Late st Contact Info) Description 09/14/2024 [place] Message [facility] [facility], [facility] [address] [place] [address] Justen Michaud MD [facility]. [facility] [address] [place], [place] [id number] Ekg Social History Tobacco Use Types Packs/Day Years [...] on file documented as of this encounter Visit Diagnoses Not on filedocumented in this encounter Care Teams Certified Medical Technician Assistant Relationship Specialty Start Date End Date Jaspal Brito MD [address] [place] [address] PCP - General FAMILY PRACTICE 01/22/22 documented as of this encounter
--- NOTE | 2024-09-18 07:08 | WPDHPUPDATE1 ---
History and Physical Update Update Date/Time: 09/18/24 07:08 History and Physical has been reviewed, including an updated exam of the patient. There are NO changes in the patient's condition. Risks, benefits, and alternatives have been discussed and questions answered. Patient agrees to proceed with procedure.
[2024-09-18] MEDS: LACTATED RINGERS 1,000 ML 30 ML IV CONT ×2 (08:30→11:10)
--- NOTE | 2024-09-18 09:08 | P.PNAN_ITS ---
Anes - Initial Pre Proc Eval Procedure: Operation Date: 09/18/24 10:00 Proposed Procedures p Primary Repair Peroneal Tendons Right Ankle, Peroneal Tenosynovectomy Right Ankle - Glenn Quintana Jr., DPM Date/Time: 09/18/24 09:08 Surgeon: Glenn Quintana Jr., DPM Pre Op Diagnosis: Perioneal Tendinopathy Right Ankle Patient Data Age: 48 Gender: F Height: 1.62 m Weight: 91.19 kg Last Vital Signs Temp 97.1 F L 09/18/24 08:30 Pulse 78 09/18/24 08:30 Resp 14 09/18/24 08:30 BP 139/87 09/18/24 08:30 Pulse Ox 96 09/18/24 08:30 O2 Del Method Room Air 09/18/24 08:30 Allergies Allergy/AdvReac Type Severity Reaction Status Date / Time Cephalosporins Allergy Intermediate N/V Verified 09/18/24 09:09 metoprolol Allergy Intermediate SOB, Verified 09/18/24 09:09 dizziness amoxicillin (From Augmentin) AdvReac Intermediate Diarrhea Verified 09/18/24 09:09 clavulanic acid (From AdvReac Intermediate Diarrhea Verified 09/18/24 09:09 Augmentin) Home Medications ?Medication ?Instructions ?Recorded ?Confirmed ?Type hydrochlorothiazide 25 mg tablet 25 mg PO .QD 07/04/22 09/09/24 History alprazolam 0.5 mg tablet (Xanax) 0.5 mg PO TID PRN anxiety #90 tabs 12/30/23 09/18/24 Rx cetirizine 10 mg tablet (Aller-Marco) 10 mg PO DAILY PRN allergy symptoms 09/09/24 09/09/24 History fluticasone propionate 93 2 spray intranasal BID 09/09/24 09/09/24 History mcg/actuation breath activated aerosol (Xhance) Patient hx anesthesia problems: none Family hx anesthesia problems: none Results Review: All pre-operative results and documents have been reviewed as part of the pre- operative evaluation. [facility] Past Medical History Medical History Screening for colon cancer COVID-19 Boil, groin Eustachian tube disorder Anxiety disorder, unspecified Essential (primary) hypertension Hyperlipidemia Surgical History Surgical History History of oophorectomy, unilateral Hx of hysterectomy Family History Family History Father Family history of mental disorder Family history of coronary artery disease Acute myocardial infarction Grandparent Cerebrovascular accident Family history of lung cancer Diabetes mellitus Mother Hypertension Alzheimer's disease Sibling Family history of malignant melanoma Thyroid activity decreased Social History Social History Smoking packs per day: 1 Smoking cigarettes per day: 20.0 Years smoked: 40 Smoking pack-years: 40.00 Smoking status: Current every day smoker Tobacco type: cigarettes Second hand tobacco smoke exposure: Yes Alcohol intake: current Drinks per week: 0 Alcohol use details: socially Substance use: never Substance use type: does not use Lack of Transportation: No Lack of Food: Never True Current Housing: I Have Housing Concerned About Future Housing: No Difficulty Paying Gas/Electric Bills: No Difficulty Paying for Meds: No Currently Unemployed: No Education: Trade/Vocational Certificate Difficulty w/ Childcare or Family Care: No Living arrangements: with family Additional living arrangements comments: Occupation/Education: unemployed 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[employer] Gender identity (if verbalized by the patient): Female Sexual Orientation (if Verbalized by the Patient): Straight or Heterosexual Spiritual care concerns: No Agree to blood products: Yes Anes - Eval Final PreProcedure Day of Procedure 09/18/24 09:08 Patient weight: obese Lungs: normal air movement Airway: Mallampati scale class II Neurological: alert and oriented Last oral intake: >/= 8 hours ASA classification: III Emergent: no Anesthetic plan: proceed Anesthesia type and monitoring: general LMA and standard monitoring Results Review: All pre-operative results and documents have been reviewed as part of the pre- operative evaluation. BMI 34, HTN, borderline hyperlipidemia. EKG w NSR RBBB. Informed Consent: The patient's anesthetic plan and its attendant risks and benefits were discussed with the patient/family/POA. Questions were solicited and answers provided to the satisfaction of the patient/family/POA.
[2024-09-18] MEDS: CLINDAMYCIN 900 MG/D5W 50 ML 900 MG/50 ML PIGGYBACK 50 MG IVPB (09:26)
[2024-09-18] MEDS: BUPivacaine HCL 0.5% 10 ML AMP INFILTRATE (09:50)
[2024-09-18] MEDS: LIDOCAINE 2% LOCAL INJ 20 ML VIAL 10 ML INFILTRATE (09:50)
--- NOTE | 2024-09-18 10:58 | P.OP_ITS ---
Procedure Note - Detailed Date of Procedure 09/18/24 Pre-op Diagnosis Perioneal Tendinopathy Right Ankle Post-op Diagnosis Other (1. Longitudinal split tears of peroneus longus and brevis tendon right ankle. 2. Peroneal tenosynovitis right ankle ) Procedure Performed 1. Primary repair of peroneal tendons right ankle 2. Peroneal tenosynovectomy right ankle Surgeon Glenn Quintana Jr., DPM Anesthesia General and Local Indications Chronic pain to the distal course of the peroneal tendons near the lateral midf oot Findings 1. 2cm Longitudinal split tear of the Peroneus Longus tendon right ankle 3. 3cm Longitudinal split tear of the Insertional Peroneus Brevis tendon right ankle Description of Procedure The patient was carmencita into the operating room, placed on the operating table in the lateral decubitus position. A pneumatic calf tourniquet was placed about the patient's right calf. Following general anesthesia, local anesthesia was obtained about the proximal leg utilizing 20 mL of local anesthesia of a one to two mix of 2% Lidocaine plain with 0.5% Marcaine plain just inferior and posterior to the neck of the fibula. The foot was then scrubbed, prepped, and draped in the usual aseptic manner. An Esmarch bandage was then used to exsanguinate the patient's foot and ankle and the pneumatic thigh tourniquet was then inflated. An incision was made starting 6 cm proximal to the lateral malleolus extending to the cuboid notch and 5th metatarsal base region. The incision was continued deep down through the subcutaneous tissues using sharp and blunt dissection. All bleeders were ligated and cauterized as necessary. I made a full length peroneal tendon sheath incision visualizing both the peroneus longus and brevis tendons in their entirety. As soon as the peroneus brevis sheath was incised yellow synovial fluid was expressed. Significant tenosynovitis was noted along the longitudinally split peroneus brevis tendon distally just proximal to its insertion measuring 3cm. I resected the tenosynitis and discarded. I resected the amorphous split tearing and retubularized with 5-0 Prolene in simple interrupted suture fashion technique. I flushed the affected area with copious amounts of sterile saline. I explored the peroneaus longus tendon as well. It had a 2cm longitudinal split tear proximal to the cuboid notch.I resected the amorphous split tearing and retubularized with 5-0 Prolene in simple interrupted suture fashion technique. Next, I reapproximated the peroneal sheath with 2 -0 Vicryl and the subcutaneous structures were reapproximated and coapted utilizing 4-0 Vicryl. Next, the skin was reapproximated and coapted utilizing 4-0 Monocryl in running subcuticular suture fashion technique. Upon completion of the procedure, the incisions were all dressed with 1/4 inch Steri Strips, Adaptic, 4x4s, Kerlix, and Coban. The pneumatic thigh tourniquet was then deflated and a prompt hyperemic response was noted to all digits of the affected foot. A posterior splint was then applied. The patient did very well with the procedure and the anesthesia. The patient was transferred to the recovery room with vital signs stable and vascular status intact to all toes of the affected foot. Following a period of postoperative monitoring, the patient will be discharged home on the following written and oral postoperative instructions: 1. The patient should keep the dressing clean, dry, and intact. Use a cast protector bag with showers. 2. The patient will be strictly nonweightbearing with a knee scooter. 3. Patient should ice and elevate the affected foot when at rest. 4. The patient is to contact Dr. Quintana for all postop care and if any problems arise. 5. Prescriptions were written for Percocet 5/325 dispensed 40 to be taken 1 p.o. q.4-6 hours as needed for severe pain. Furthermore, Xarelto 10 mg was also prescribed to be taken starting 24 hours after surgery once daily for 14 days followed by one 325 mg aspirin to prevent DVT. Implants None Estimated Blood Loss 1 Drains No Packing No Pathology None sent Complications No immediate complications Condition Stable Disposition Same day
[2024-09-18] MEDS: fentaNYL CITRATE INJ (*CRX) 100 MCG/2 ML VIAL 25 MCG IV PUSH ×4 (11:16→11:36)
[2024-09-18] MEDS: oxyCODONE HCL (*CRX) 5 MG TAB IR PO (12:08)
== END 2024-09-18 12:52 | disposition home or self-care (01) ==
PROVIDERS: PCP Family Medicine; Visit Provider Podiatrist Foot & Ankle Surgery
PROC: (CPT 27698; principal; 2024-09-18 10:00)
DX: S86.311A Strain of muscle(s) and tendon(s) of peroneal muscle group at lower leg level, right leg, initial encounter (principal); M65.871 Other synovitis and tenosynovitis, right ankle and foot; F17.210 Nicotine dependence, cigarettes, uncomplicated; E66.9 Obesity, unspecified; Z68.34 Body mass index [BMI] 34.0-34.9, adult; X58.XXXA Exposure to other specified factors, initial encounter
CPT/HCPCS: 28200 ×2; 28088; A9270; J1100; J2003; J2250; J2405; J2704; J3010; J7120

== ENCOUNTER 2025-03-25 08:18 | Emergency (ER) | payer BC, SELFPAY ==
[2025-03-25 09:05] VITALS: BP 166/78; PULSE 75; RESP 16; TEMP 36.4; O2SAT 99
[2025-03-25 09:46] LABS: EDINFLUASCREEN Negative (Negative); EDINFLUBSCREEN Negative (Negative); EDSTREPNEGPOS1 Negative (Negative)
--- NOTE | 2025-03-25 10:16 | ED.URI ---
HPI - URI/Sore Throat General Chief Complaint: Upper Respiratory Infection Stated Complaint: sorethroat,chest congestion Time Seen by Provider: 03/25/25 09:35 Source: patient and RN notes reviewed Mode of arrival: ambulatory Limitations: no limitations History of Present Illness HPI Narrative: 49-year-old female presents Express Care complaining of cough, congestion, sore throat, body aches, voice hoarseness for approximately 2 days. Patient reports a history of chronic bronchitis and hypertension. Patient says she is a 3/4 pack a day smoker. Patient denies any chest pain, reports some increasing more shortness of breath than normal. Patient denies any wheezing, nausea, vomiting, diarrhea, fevers, chills, or any upper respiratory symptoms. Patient has been taking Robitussin ibuprofen up with symptoms. Patient took a home COVID test at home that was negative. Related Data Home Medications ?Medication ?Instructions ?Recorded ?Confirmed ?Last Taken ?Type hydrochlorothiazide 25 mg tablet 25 mg PO .QD 07/04/22 09/09/24 08/21/22 History cetirizine 10 mg tablet (Aller-Marco) 10 mg PO DAILY PRN allergy symptoms 09/09/24 09/09/24 Unknown History fluticasone propionate 93 2 spray intranasal BID 09/09/24 09/09/24 Unknown History mcg/actuation breath activated aerosol (Xhance) Allergies Allergy/AdvReac Type Severity Reaction Status Date / Time Cephalosporins Allergy Intermediate N/V Verified 03/25/25 09:42 metoprolol Allergy Intermediate SOB, Verified 03/25/25 09:42 dizziness amoxicillin (From Augmentin) AdvReac Intermediate Diarrhea Verified 03/25/25 09:42 clavulanic acid (From AdvReac Intermediate Diarrhea Verified 03/25/25 09:42 Augmentin) Review of Systems Review of Systems: CONSTITUTIONAL: Denies fever, chills, or sweats. Positive for body aches. EYES: Denies visual changes, redness, or discharge. ENT: Positive for congestion, sore throat. Negative for rhinorrhea or otalgia. CARDIOVASCULAR: Denies chest pain, palpitations, or edema. RESPIRATORY: Positive for cough and dyspnea. Negative for difficulty breathing or wheezing. GASTROINTESTINAL: Denies abdominal pain, nausea, vomiting, or diarrhea. GENITOURINARY: Denies dysuria or hematuria. SKIN: Denies rash or itching. MUSCULOSKELETAL: Denies back pain, joint pain, or myalgia. NEUROLOGIC: Denies headache, numbness, or weakness. PSYCHIATRIC: Denies anxiety or depression. All other systems reviewed are negative, except as documented in HPI. [facility] Past Medical History Medical History Screening for colon cancer COVID-19 Boil, groin Eustachian tube disorder Anxiety disorder, unspecified Essential (primary) hypertension Hyperlipidemia Surgical History Surgical History History of oophorectomy, unilateral Hx of hysterectomy Family History Family History Father Family history of mental disorder Family history of coronary artery disease Acute myocardial infarction Grandparent Cerebrovascular accident Family history of lung cancer Diabetes mellitus Mother Hypertension Alzheimer's disease Sibling Family history of malignant melanoma Thyroid activity decreased Social History Social History Smoking packs per day: 1 Smoking cigarettes per day: 20.0 Years smoked: 40 Smoking pack-years: 40.00 Smoking status: Current every day smoker Tobacco type: cigarettes Second hand tobacco smoke exposure: Yes Alcohol intake: current Drinks per week: 0 Alcohol use details: socially Substance use: never Substance use type: does not use Lack of Transportation: No Lack of Food: Never True Current Housing: I Have Housing Concerned About Future Housing: No Difficulty Paying Gas/Electric Bills: No Difficulty Paying for Meds: No Currently Unemployed: No Education: Trade/Vocational Certificate Difficulty w/ Childcare or Family Care: No Living arrangements: with family Additional living arrangements comments: Occupation/Education: unemployed 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 There is no relevant family history pertinent to the patient complaint. Exam Narrative: GENERAL: This is a well-nourished, well-developed adult, in no apparent distress. They are non ill-appearing, nontoxic appearing. HEAD: normocephalic, atraumatic. EYES: Sclera clear/white. Vision is grossly intact. Conjunctiva normal bilaterally. Extraocular movements intact. EARS: External ears normal, auditory canals clear and without drainage, TMs without erythema or perforation. Hearing grossly intact. NOSE: External nose normal with no obvious nasal discharge, nasal turbinates erythematous, no rhinorrhea. THROAT: Mucous membranes moist, posterior pharynx erythematous without exudate. Uvula is midline. Postnasal drip present. NECK: Neck supple, non-tender without lymphadenopathy, masses or thyromegaly. CARDIOVASCULAR: Regular rate and rhythm without murmurs, gallops, or rubs. RESPIRATORY: Clear to auscultation. Breath sounds equal bilaterally. No wheezes, rales, or rhonchi. SKIN: warm, Dry, intact with no suspicious lesions or rash, good texture and turgor. NEURO: awake, alert, and oriented to person, place and time. There were no obvious focal neurologic abnormalities. EXTREMITIES: No joint tenderness, effusion, or edema noted. BACK: Nontender without deformity. Course Course Emergency Course: Portions of this record may have been created with voice recognition software Level of Care: Express Care Visit Vital Signs Vital signs: Vital Signs Temperature 97.6 F 03/25/25 09:05 Pulse Rate 75 03/25/25 09:05 Respiratory Rate 16 03/25/25 09:05 Blood Pressure 166/78 H 03/25/25 09:05 Pulse Oximetry 99 03/25/25 09:05 Oxygen Delivery Room Air 03/25/25 09:05 Temperature 97.6 F 03/25/25 09:05 Pulse Rate 75 03/25/25 09:05 Respiratory Rate 16 03/25/25 09:05 Blood Pressure 166/78 H 03/25/25 09:05 Pulse Oximetry 99 03/25/25 09:05 Oxygen Delivery Room Air 03/25/25 09:05 MDM - URI/Sore Throat MDM Narrative Medical decision making narrative: Rapid flu and strep were negative. A throat culture is pending. Patient negative COVID at home. Patient likely has a viral bronchitis. Given patient's smoking history and chronic bronchitis, will treat her with a short course of prednisone and give her albuterol inhaler as needed for wheezing or shortness of breath. Discussed physical exam findings. Advised supportive measures and signs/symptoms to go to the ER. Pt is appropriate for outpt treatment and f/u. Differential Diagnosis Differential diagnosis: Likely upper respiratory infection, viral infection, bronchitis and pharyngitis Lab Data Attestation: I reviewed the patient's lab results. Labs: Lab Results 03/25/25 Range/Units 08:55 POC Influenza A Ag Negative (Negative) POC Influenza B Ag Negative (Negative) POC Grp A Strep Screen Negative (Negative) Discharge Plan Discharge Clinical Impression: Acute viral bronchitis Patient Disposition: Home Condition: Stable Instructions: Acute Bronchitis (ED) Additional Instructions: Your rapid COVID, flu, strep were negative today. A throat culture was sent off and if it is positive for strep you will be contacted and started on appropriate antibiotics. Take prednisone as directed. Use the inhaler as needed for wheezing or shortness of breath. Recommend Flonase spray and Zyrtec (or Claritin/Flores) for congestion. Follow instructions on the bottle. Tylenol and ibuprofen as needed for pain or fevers. Follow instructions on the bottle. Symptomatic treatment includes: rest, fluids, and increase humidity of the air at home. Follow up with your primary care provider in 3-5 days. Go to the ER for worsening symptoms, chest pain, difficulty breathing, nausea, vomiting, fevers, or any serious concerns. Patient Language: [place]ian Prescriptions: New prednisone 20 mg tablet 40 mg PO DAILY 5 Days Qty: 10 0RF albuterol sulfate [Ventolin HFA] 90 mcg/actuation HFA aerosol inhaler 2 puff inhalation QID PRN (Reason: shortness of breath or wheezing) Qty: 8.5 0RF No Action hydrochlorothiazide 25 mg tablet 25 mg PO .QD alprazolam [Xanax] 0.5 mg tablet 0.5 mg PO TID PRN (Reason: anxiety) Qty: 90 0RF Xhance 93 mcg/actuation aerosol breath activated 2 spray intranasal BID Rx Instructions: into each nostril cetirizine [Aller-Marco] 10 mg tablet 10 mg PO DAILY PRN (Reason: allergy symptoms) Follow-up/Referrals: Jaspal Brito MD [Primary Care Provider, Family Practice] Stand Alone Forms: Work/School Release IP Time of Disposition: 09:57
== END 2025-03-25 10:05 | disposition home or self-care (01) ==
PROVIDERS: PCP Family Medicine
DX: J20.8 Acute bronchitis due to other specified organisms (principal); I10 Essential (primary) hypertension; E78.5 Hyperlipidemia, unspecified; F17.210 Nicotine dependence, cigarettes, uncomplicated
CPT/HCPCS: 87081; 87804; 87880; 99213; G0463